=== PATIENT | female | born 1955 | race American Indian/Alaskan Native ===

== ENCOUNTER 2018-03-13 15:47 | Inpatient (IN) | payer MEDICARE, BC, OTHER ==
[2018-03-13 15:47] VITALS: BMI 36.9
--- NOTE | 2018-03-13 16:07 | ED PDOC ---
Arrival/HPI - General Chief Complaint: Psychiatric Evaluation Time Seen by Provider: 03/13/18 15:50 - History of Present Illness Narrative History of Present Illness (Text): 03/13/18 16:05 62 yo female, hx of depression, presents for evalof depression. pt jumped out of a vehicle on Wednesday, states vehicle slow moving. no injury or complaint after fall. no medical complaint. no loc. Past Medical History - Cardiac Hx Hypertension: Yes - Pulmonary Hx Respiratory Disorders: No Hx Tuberculosis: No - Neurological Hx Seizures: No - HEENT Hx HEENT Disorder: No - Renal Hx Renal Disorder: No - Hematological/Oncological Hx Blood Disorders: No - Integumentary Hx Dermatological Disorder: No - Musculoskeletal/Rheumatological Hx Musculoskeletal Disorders: Yes Hx Falls: No Hx Herniated Disk: Yes - Gastrointestinal Hx Gastrointestinal Disorders: No - Genitourinary/Gynecological Hx Sexually Transmitted Diseases: No - Psychiatric Hx Anxiety: Yes Hx Bipolar Disorder: Yes Hx Depression: Yes Hx Substance Use: No - Surgical History Other/Comment: Gastric lap band 2016. Cardiac Catherization 2016 [facility] - Anesthesia Hx Anesthesia: Yes Hx Anesthesia Reactions: No Hx Malignant Hyperthermia: No - Suicidal Assessment Feels Threatened In Home Enviroment: No Family/Social History Family/Social History: Unknown Family HX Smoking Status: Never Smoked Hx Alcohol Use: No Hx Substance Use: No Allergies/Home Meds Allergies/Adverse Reactions: Allergies adhesive tape Allergy (Verified 03/13/18 22:23) RASH Iodine and Iodide Containing Produc Allergy (Verified 03/13/18 22:23) ANAPHYLAXIS levothyroxine sodium [From Synthroid] Allergy (Verified 03/13/18 22:23) REDNESS povidone-iodine [From Betadine] Allergy (Verified 03/13/18 22:23) RASH soap [From Betadine] Allergy (Verified 03/13/18 22:23) RASH CRABS Allergy (Severe, Uncoded 03/13/18 22:23) ANAPHYLAXIS fresh fruit Allergy (Intermediate, Uncoded 03/13/18 22:23) ITCHING Home Medications: Home Meds Medication Instructions Recorded Confirmed RX: Alprazolam [Xanax] 1 mg PO TID PRN 11/09/15 03/13/18 RX: Conjugated Estrogens [Premarin] 0.625 mg PO DAILY 11/09/15 03/13/18 RX: Liothyronine [Cytomel] 25 mcg PO DAILY 11/09/15 03/13/18 RX: OXcarbazepine [Trileptal] 150 mg PO BID 11/09/15 03/13/18 RX: risperiDONE [RisperDAL Tab] 2 mg PO BID 11/09/15 03/13/18 RX: traZODone [Desyrel] 100 mg PO DAILY 11/09/15 03/13/18 Esomeprazole Magnesium [Nexium] 40 mg PO DAILY 03/13/18 03/13/18 Levothyroxine [Synthroid] 0.1 mg PO DAILY 03/13/18 03/13/18 Losartan/Hydrochlorothiazide 1 each PO DAILY 03/13/18 03/13/18 [Losartan-Hctz 50-12.5 mg Tab] Simvastatin [Zocor] 40 mg PO DAILY 03/13/18 03/13/18 oxyCODONE/Acetaminophen [Percocet 10 mg PO PRN PRN 03/13/18 03/13/18 5/325 mg Tab] Review of Systems - Review of Systems Constitutional: Normal Eyes: Normal ENT: Normal Respiratory: Normal Cardiovascular: Normal Gastrointestinal: Normal Genitourinary Female: Normal Musculoskeletal: Normal Skin: Normal Neurological: Normal Endocrine: Normal Hemo/Lymphatic: Normal Psychiatric: Normal Physical Exam Vital Signs Temp Pulse Resp BP Pulse Ox 03/13/18 15:55 97.7 F 104 H 18 116/74 96 Temperature: Afebrile Pulse: Tachycardic (mild) - Systems Exam Head: Present: Atraumatic, Normocephalic Pupils: Present: PERRL Extroacular Muscles: Present: EOMI Conjunctiva: Present: Normal Mouth: Present: Moist Mucous Membranes Neck: Present: Normal Range of Motion Respiratory/Chest: Present: Clear to Auscultation, Good Air Exchange. No: Respiratory Distress, Accessory Muscle Use Cardiovascular: Present: Regular Rate and Rhythm, Normal S1, S2. No: Murmurs Abdomen: No: Tenderness, Distention, Peritoneal Signs Back: Present: Normal Inspection Upper Extremity: Present: Normal Inspection. No: Cyanosis, Edema Lower Extremity: Present: Normal Inspection. No: Edema Neurological: Present: GCS=15, CN II-XII Intact, Speech Normal Skin: Present: Warm, Dry, Normal Color. No: Rashes Psychiatric: Present: Alert, Oriented x 3, Normal Insight, Normal Concentration, Depressed Mood, Other (mildly anxious appearing) Medical Decision Making ED Course and Treatment: 03/13/18 16:06 pending medical clearace. 03/13/18 16:40 ekg nsr [address] t wave changes 03/15/18 11:27 endorsed to nigh shift pending ua and admission - RAD Interpretation Radiology Orders: 03/13/18 16:03 CHEST PORTABLE [RAD] Stat Disposition/Present on Arrival - Present on Arrival Any Indicators Present on Arrival: No History of DVT/PE: No History of Uncontrolled Diabetes: No Urinary Catheter: No History of Decub. Ulcer: No History Surgical Site Infection Following: None - Disposition Have Diagnosis and Disposition been Completed?: Yes Diagnosis: Depression Disposition: HOSPITALIZED Disposition Time: 19:00 Patient Problems: Current Active Problems Problem Status Onset Bipolar disorder Acute Depression Acute History of OCD (obsessive compulsive disorder) Acute Condition: STABLE
[2018-03-13 17:05] LABS: BASO # 0.01 K/mm3 (0.0-2.0); BASO % 0.2 % (0.0-3.0); EOS # 0.1 (0.0-0.7); EOS % 1.5 % (1.5-5.0); GRAN # 2.35 (1.4-6.5); GRAN % 51.5 % (50.0-68.0); HEMOGLOBIN 13.2 g/dL (12.0-16.0); LYMPH # 1.9 (1.2-3.4); LYMPH % 42.2 % (22.0-35.0); MEAN CELL VOLUME 83.9 fl (80.0-105.0); MEAN CORPUSCULAR HGB CONC 33.3 g/dl (31.0-37.0); MEAN PLATELET VOLUME 9.3 fl (7.0-11.0); MONO # 0.2 (0.1-0.6); MONO % 4.6 % (1.0-6.0); RBC 4.72 10^6/uL (3.5-6.1); RED CELL DISTRIBUTION WIDTH 13.8 % (11.5-14.5); WHITE BLOOD COUNT 4.6 10^3/uL (4.5-11.0)
[2018-03-13 17:19] LABS: ACETAMINOPHEN < 10.0 ug/ml (10.0-20.0); ALB/GLOB RATIO 1.5 (1.1-1.8); ALBUMIN 4.3 g/dL (3.0-4.8); ALT/SGPT 45 U/L (7-56); AST/SGOT 58 U/L (14-36); BLOOD UREA NITROGEN 18 mg/dL (7-21); CALCIUM 9.4 mg/dL (8.4-10.5); GFR NON-AFRICAN AMERICAN 56; SALICYLATE < 1 mg/dL (2.0-20.0)
--- NOTE | 2018-03-13 17:30 | RAD ---
Date of service: 03/13/2018 HISTORY: debora COMPARISON: 11/09/2015 FINDINGS: LUNGS: The lungs are well inflated and clear. PLEURA: No pleural effusions or pneumothorax. CARDIOVASCULAR: The heart is normal in size. No aortic atherosclerotic calcification present. OSSEOUS STRUCTURES: Within normal limits for the patient's age. VISUALIZED UPPER ABDOMEN: Normal. OTHER FINDINGS: None. IMPRESSION: No active pulmonary disease.
--- NOTE | 2018-03-13 19:04 | ED PDOC ---
Physical Exam Vital Signs Reviewed: Yes Vital Signs Temp Pulse Resp BP Pulse Ox 03/13/18 17:30 90 18 120/80 99 03/13/18 15:55 97.7 F 104 H 18 116/74 96 Temperature: Afebrile Blood Pressure: Normal Pulse: Tachycardic Respiratory Rate: Normal Appearance: Positive for: Well-Appearing, Non-Toxic, Comfortable Pain Distress: None Mental Status: Positive for: Alert and Oriented X 3 - Systems Exam Head: Present: Atraumatic, Normocephalic Pupils: Present: PERRL Extroacular Muscles: Present: EOMI Conjunctiva: Present: Normal Mouth: Present: Moist Mucous Membranes Neck: Present: Normal Range of Motion Respiratory/Chest: Present: Clear to Auscultation, Good Air Exchange. No: Respiratory Distress, Accessory Muscle Use Cardiovascular: Present: Regular Rate and Rhythm, Normal S1, S2. No: Murmurs Abdomen: No: Tenderness, Distention, Peritoneal Signs Back: Present: Normal Inspection Upper Extremity: Present: Normal Inspection. No: Cyanosis, Edema Lower Extremity: Present: Normal Inspection. No: Edema Neurological: Present: GCS=15, CN II-XII Intact, Speech Normal Skin: Present: Warm, Dry, Normal Color. No: Rashes Psychiatric: Present: Alert, Oriented x 3, Normal Insight, Normal Concentration, Anxious (mildly anxious), Depressed Mood Medical Decision Making ED Course and Treatment: 03/13/18 19:02 Case endorsed to me by Dr. Pickard, pending urine and hospital admission. 03/13/18 19:13 Spoke to [facility] television rental clerk who states patient will be admitted under Dr. Mendoza and needs to confirm insurance. Urine pending. - Lab Interpretations Lab Results: 03/13/18 16:45 03/13/18 16:45 Lab Results 03/13/18 16:45: Alcohol, Quantitative < 10 03/13/18 16:45: Salicylates < 1 L, Acetaminophen < 10.0 L 03/13/18 16:45: Sodium 140, Potassium 3.7, Chloride 104, Carbon Dioxide 26, Anion Gap 14, BUN 18, Creatinine 1.0, Est GFR ( Amer) > 60, Est GFR (Non- Af Amer) 56, Random Glucose 107, Calcium 9.4, Magnesium 1.9, Total Bilirubin 0.4, AST 58 H, ALT 45, Alkaline Phosphatase 73, Total Protein 7.3, Albumin 4.3, Globulin 2.9, Albumin/Globulin Ratio 1.5 03/13/18 16:45: WBC 4.6 D, RBC 4.72, Hgb 13.2, Hct 39.6, MCV 83.9, MCH 28.0, MCHC 33.3, RDW 13.8, Plt Count 191, MPV 9.3, Gran % 51.5, Lymph % (Auto) 42.2 H, Sierra % (Auto) 4.6, Eos % (Auto) 1.5, Baso % (Auto) 0.2, Gran # 2.35, Lymph # (Auto) 1.9, Sierra # (Auto) 0.2, Eos # (Auto) 0.1, Baso # (Auto) 0.01 - RAD Interpretation Radiology Orders: 03/13/18 16:03 CHEST PORTABLE [RAD] Stat - Scribe Statement The provider has reviewed the documentation as recorded by the Scribe Madiha Abad All medical record entries made by the Scribe were at my direction and personally dictated by me. I have reviewed the chart and agree that the record accurately reflects my personal performance of the history, physical exam, medical decision making, and the department course for this patient. I have also personally directed, reviewed, and agree with the discharge instructions and disposition. Disposition/Present on Arrival - Present on Arrival Any Indicators Present on Arrival: No History of DVT/PE: No History of Uncontrolled Diabetes: No Urinary Catheter: No History of Decub. Ulcer: No History Surgical Site Infection Following: None - Disposition Have Diagnosis and Disposition been Completed?: Yes Diagnosis: Depression Disposition Time: 19:10 Patient Plan: Admission Condition: STABLE Referrals: José Miguel Dennis MD [Primary Care Provider] - Follow up with primary Forms: [employer] (Hungarian)
[2018-03-13 19:33] VITALS: O2SAT 100
[2018-03-13 19:37] LABS: URINE BILIRUBIN NEGATIVE (NEGATIVE); URINE BLOOD NEGATIVE (NEGATIVE); URINE GLUCOSE (UA) NEGATIVE (NEGATIVE); URINE LEUKOCYTE ESTERASE TRACE Leu/uL (NEGATIVE); URINE PROTEIN NEGATIVE mg/dL (<30 mg/dL); URINE UROBILINOGEN 0.2 E.U./dL (<1 E.U./dL)
[2018-03-13 19:44] LABS: URINE APPEARANCE CLEAR (CLEAR); URINE COLOR YELLOW (YELLOW)
[2018-03-13 20:06] LABS: BARBITURATES, UR NEGATIVE (NEGATIVE); BENZODIAZEPINES, UR POSITIVE (NEGATIVE); OPIATES, UR POSITIVE (NEGATIVE); PHENCYCLIDINE, UR NEGATIVE (NEGATIVE)
[2018-03-13 20:19] LABS: URINE RBC NEGATIVE /hpf (0-2)
[2018-03-13 20:20] LABS: URINE BACTERIA FEW (NEG)
[2018-03-13] MEDS ORDERED: Magnesium Hydroxide Susp 30 ml UD PO PRN (22:06)
[2018-03-13] MEDS ORDERED: Alum-Mag Hydrox-Simethicone Susp (30 mL) PO PRN (22:06)
[2018-03-13 22:54] LABS: HDL CHOLESTEROL 76 mg/dL (29-60)
[2018-03-13 23:04] LABS: LDL CHOLESTEROL 61 mg/dL (0-129)
--- NOTE | 2018-03-14 05:44 | PCM.BM ---
<James Husain O - Last Filed: 03/14/18 05:40> Treatment Plan Problems - Problems identified on initial assessmt Hopelessness Date Initiated: 03/13/18 Time Initiated: 22:45 Assessment reference: NA Status: Active Altered sleep pattern Date Initiated: 03/13/18 Time Initiated: 22:00 Assessment reference: NA Status: Active Feeling of worthlesness Date Initiated: 03/13/18 Time Initiated: 23:00 Assessment reference: NA Status: Active Treatment assets and liabiliti Patient Assests: ADL independent, good support system, good past tx response Patient Liabilities: poor support system - Milieu Protocol Maintain good personal hygiene: daily Encourage regular showers, daily Remind patient to perform daily oral care, daily Assist patient to perform ADL's Maintain personal safety: daily Educate patient to report safety concerns to staff, daily Monitor environment for contraband/sharps Medication safety: Monitor for expected outcome, potential side effects: daily, Assess barriers to learning: daily, Assess readiness for medication education: daily Family Contact Family contact: Patient declines to allow family contact at present Discharge/Continuing Care - Education Needs Education Needs: Patient Medication, Patient Coping Skills, Patient Aftercare Safety Plan - Discharge Discharge Criteria: Normal sleep pattern <Kelly Mcdonald - Last Filed: 03/14/18 15:00> - Diagnosis (1) Bipolar disorder Status: Acute Interventions: 03/14/18 15:01 Psychoeducation Psychopharmacology/adjustment of medications as needed/ monitoring possible side effects Monitor blood level of mood stabilizers Evaluate pt on daily basis Compliance with medications and follow up appointments Suicide and homicide risk assessment and prevention, coping strategies, safety plan Relapse prevention Reduction of symptoms Improve functional status Family involvement As outpatient: cognitive behavioral therapy (2) History of OCD (obsessive compulsive disorder) Status: Acute Interventions: 03/14/18 15:01 Psychoeducation Psychopharmacology/adjustment of medications as needed/ monitoring possible side effects Evaluate pt on daily basis Compliance with medications and follow up appointments Suicide and homicide risk assessment and prevention, coping strategies, safety plan Relapse prevention Reduction of symptoms Improve functional status Family involvement CBT, SSRI, exposure response prevention as outpatient Supportive therapy <Mayte Wellington Y - Last Filed: 03/16/18 15:16> Family Contact Family contact: Patient declines to allow family contact at present - Outside Agency Dr. Graves Care involvment: Information-sharing Agency contact name: psychiatrist, Dr. Graves
[2018-03-14 08:21] LABS: GLUCOSE,FASTING 93 mg/dL (65-110); HDL CHOLESTEROL 77 mg/dL (29-60)
[2018-03-14 08:32] LABS: LDL CHOLESTEROL 65 mg/dL (0-129)
--- NOTE | 2018-03-14 10:18 | CARD ---
APPROVED REPORT Date of service: 03/13/2018 EKG Measurement Heart [id number] <Conclusion> Sinus rhythm with 1st degree AV block Possible Inferior infarct, old NSSTW chnages Prolonged QT
--- NOTE | 2018-03-14 10:43 | CARD ---
APPROVED REPORT Date of service: 03/14/2018 EKG Measurement Heart [id number] <Conclusion> Normal sinus rhythm Low voltage QRS Possible Inferior infarct, age undetermined Abnormal ECG
[2018-03-14] MEDS: Mupirocin 2% Ointment 15 GM TUBE TOP SCH ×2 (11:11→15:33)
[2018-03-14] MEDS: Amoxicillin-Clav 500-125 mg Tab PO SCH ×2 (11:11→15:18)
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
[2018-03-14] MEDS: Oxycodone/Acetaminophen 2.5/325 mg Tab PO PRN (15:18)
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
--- NOTE | 2018-03-14 19:10 | CON ---
DATE OF CONSULTATION: 03/14/2018 REASON FOR CONSULTATION: Abnormal EKG. HISTORY OF PRESENT ILLNESS: The patient is a 62-year-old female who has a history of depression, was admitted because of symptoms of depression, not associated with suicidal ideation. The patient also did report chest discomfort to me today. Her EKG was abnormal with evidence of prolonged RI interval and prolonged QT interval. The patient denies any dizziness or syncope. The patient stated that she underwent recently, on 02/16/2018, an echocardiogram as well as a Lexiscan. The Lexiscan was reported to be negative as per my own review of the report and the echocardiograph study revealed normal ejection fraction and mild pulmonary hypertension. The patient also stated she underwent cardiac catheterization in 10/2015, which I did review the report, which revealed normal coronary circulation and normal left ventricular diastolic function. PAST MEDICAL HISTORY: Insignificant except for depression. SOCIAL HISTORY: Nonsmoker. CURRENT MEDICATIONS: Augmentin 1 tablet p.o. twice a day, Desyrel 100 mg at bedtime daily, Trileptal 450 mg once a day, Xanax 1 mg p.o. every 8 hours. REVIEW OF SYSTEMS: No nausea or vomiting. No fever or chills. PHYSICAL EXAMINATION: GENERAL: The patient is a middle-aged female who does not appear to be in any distress. VITAL SIGNS: Blood pressure 101/53, heart rate 66, temperature 97.7, respirations 19. HEENT: Normocephalic. NECK: No JVD. CHEST: Clear. HEART: S1 and S2 regular. ABDOMEN: Soft. EXTREMITIES: No edema. LABORATORY DATA: A urine drug screen is positive for methadone and benzodiazepines. SMA-7 is within normal limits. TSH level is below normal at 0.45. Hemoglobin and hematocrit 15.1 and 39.6, white count and platelet count are within normal limits. Second EKG done yesterday revealed sinus rhythm with first-degree AV block and nonspecific ST-T wave changes. Inferior Q-waves were noted. ASSESSMENT: 1. Atypical chest discomfort. The patient did have recently normal Lexiscan and normal echocardiograph study. Both were performed on 02/16/2018 as an outpatient. 2. Abnormal EKG with a slightly prolonged QT and RI interval. 3. Depression. RECOMMENDATIONS: Continue current antidepressants. I will obtain serum D-dimer, and if elevated, I will proceed with chest CT angio and venous Doppler of the lower extremities. Junaid Eugene MD
[2018-03-15] MEDS: Pantoprazole 40 mg EC Tab PO SCH ×2 (06:11→06:17)
[2018-03-15] MEDS: Levothyroxine 100 MCG TAB PO SCH (06:12)
[2018-03-15 07:25] VITALS: RESP 20
[2018-03-15 08:19] LABS: HEMOGLOBIN 12.4 g/dL (12.0-16.0); MEAN CELL VOLUME 83.5 fl (80.0-105.0); MEAN CORPUSCULAR HEMOGLOBIN 27.6 pg (25.0-35.0); MEAN CORPUSCULAR HGB CONC 33.1 g/dl (31.0-37.0); MEAN PLATELET VOLUME 9.5 fl (7.0-11.0); RBC 4.49 10^6/uL (3.5-6.1); RED CELL DISTRIBUTION WIDTH 13.9 % (11.5-14.5); WHITE BLOOD COUNT 3.2 10^3/uL (4.5-11.0)
[2018-03-15 08:40] LABS: ALB/GLOB RATIO 1.3 (1.1-1.8); ALBUMIN 4.1 g/dL (3.0-4.8); ALT/SGPT 50 U/L (7-56); AST/SGOT 42 U/L (14-36); BLOOD UREA NITROGEN 14 mg/dL (7-21); GFR NON-AFRICAN AMERICAN > 60
[2018-03-15] MEDS: Amoxicillin-Clav 500-125 mg Tab PO SCH ×2 (09:15→17:19)
[2018-03-15] MEDS: Oxycodone/Acetaminophen 2.5/325 mg Tab PO PRN ×2 (09:17→22:11)
[2018-03-15] MEDS: Mupirocin 2% Ointment 15 GM TUBE TOP SCH ×2 (09:20→17:20)
[2018-03-15] MEDS ORDERED: Iohexol 350 MG/100 ML VIAL ONE (10:20)
--- NOTE | 2018-03-15 13:30 | PN ---
DATE: SUBJECTIVE: I saw her in the psychiatric floor. She is eating her breakfast, does not like the food, but she is eating it. She is feeling a little bit better mentally. She is having this right should pain. She wants Physical Therapy to see her, I will order it and see what they can do for her. She is on Augmentin and Bactroban cream for a dog bite, which I think is going to get better. Cozaar, Desyrel, Geodon, hydrochlorothiazide, Protonix, Prozac, Risperdal, Synthroid, oxcarbazepine, Tylenol, Xanax and it looks like she is getting some oxycodone. PHYSICAL EXAMINATION: VITAL SIGNS: Temperature is 97.4 , 97 pulse, 120/86 blood pressure, and 20 respiratory rate. HEENT: Head is atraumatic and normocephalic. HEART: Regular rate. LUNGS: Clear to auscultation. ABDOMEN: Soft, obese and nontender. EXTREMITIES: No edema, but she is having a left calf dog bite, on Bactroban cream with some antibiotics. She tells me it is going to be a little bit better and I will get some physical therapy for her right shoulder. Continue with aggressive treatment and care as per Psychiatry. LABORATORY DATA: She had blood test, 3.2 white count, 12.4 hemoglobin, 37.5 hematocrit and platelets. She has 140 sodium, potassium 3.7, BUN 14, creatinine 0.8, GFR is greater than 60, sugar is 91, calcium is 9, and total bili is 0.3. AST is 42, ALT is 50 and alk phos 53. TSH is 0.28. She is not on any Synthroid. ASSESSMENT AND PLAN: She is breathing well. No chest pain or shortness of breath. I am going to continue with aggressive treatment and care on [place]. There was a consult for Cardiology on elevated QTC. Continue with current antidepressants. Will need a CT angio because the D-dimer is elevated. Venous Doppler of the lower extremities. Tylor Naylor DO [facility]
[2018-03-15] MEDS ORDERED: ALPRAZOLAM 1 MG PO PRN (14:00)
[2018-03-15] MEDS ORDERED: ALPRAZOLAM 1 MG PO SCH (14:00)
--- NOTE | 2018-03-15 15:43 | US ---
HISTORY: Leg pain and swelling. Evaluate for DVT PHYSICIAN(S): Hi Sawant MD. TECHNIQUE: Duplex sonography and color-flow Doppler with graded compression were used to evaluate the deep venous systems of both lower extremities. FINDINGS: The visualized deep venous systems of both lower extremities are sonographically normal and compressible. Normal wave forms and augmentation are seen. There is no sonographic evidence for deep venous thrombosis in the visualized segments of both lower extremities. IMPRESSION: No sonographic evidence for deep venous thrombosis in the visualized segments of both lower extremities.
--- NOTE | 2018-03-15 16:02 | PCM.PYCHPN ---
Psychiatric Progress Note - Psychiatric Progress Note Patient seen today, length of contact: 30 minutes Patient Chief Complaint: "I am very emotional, sentimental..., i was not able to fall asleep and stay asleep" Problems Identified/Issues Discussed: Suicide/ homicide prevention, past psychiatric h/o, current psychiatric symptoms, medical problems, risk/benefits and alternatives of medications, medications compliance, coping strategies, substance abuse h/o, relapse pre vention, importance of follow up with psychiatrist and therapist, discharge plan. Medical Problems: please see medical team note for more detailed information Diagnostic Results: 03/15/18 08:00 03/15/18 08:00 Lab Results 03/15/18 08:00: TSH 3rd Generation 0.28 L 03/15/18 08:00: Sodium 140, Potassium 3.7, Chloride 106, Carbon Dioxide 23, A nion Gap 14, BUN 14, Creatinine 0.8, Est GFR ( Amer) > 60, Est GFR (Non- Af Amer) > 60, Random Glucose 91, Calcium 9.0, Total Bilirubin 0.3, AST 42 H D, ALT 50, Alkaline Phosphatase 63, Total Protein 7.2, Albumin 4.1, Globulin 3.1, Albumin/Globulin Ratio 1.3 03/15/18 08:00: WBC 3.2 L D, RBC 4.49, Hgb 12.4, Hct 37.5, MCV 83.5, MCH 27.6, MCHC 33.1, RDW 13.9, Plt Count 187, MPV 9.5 03/14/18 14:00: D-Dimer, Quantitative 285 H 03/14/18 07:00: RPR Nonreactive 03/14/18 07:00: Fasting Glucose 93, Triglycerides 121, Cholesterol 157, LDL Cholesterol Direct 65, HDL Cholesterol 77 H 03/14/18 07:00: TSH 3rd Generation 0.45 L 03/13/18 22:15: Hemoglobin A1c 5.6 03/13/18 22:15: Triglycerides 157, Cholesterol 162, LDL Cholesterol Direct 61, HDL Cholesterol 76 H 03/13/18 19:25: Urine Opiates Screen Positive H, Urine Methadone Screen Negative, Ur Barbiturates Screen Negative, Ur Phencyclidine Scrn Negative, Ur Amphetamines Screen Negative, U Benzodiazepines Scrn Positive H, U Oth Cocaine Metabols Negative, U Cannabinoids Screen Negative 03/13/18 19:25: Urine Color Yellow, Urine Appearance Clear, Urine pH 6.0, Ur Specific [place] 1.020, Urine Protein Negative, Urine Glucose (UA) Negative, Urine Ketones Negative, Urine Blood Negative, Urine Nitrate Negative, Urine Bilirubin Negative, Urine Urobilinogen 0.2, Ur Leukocyte Esterase Trace H, Urine RBC Negative, Urine WBC 1 - 3, Ur Epithelial Cells 1 - 3, Urine Bacteria Few 03/13/18 16:45: Alcohol, Quantitative < 10 03/13/18 16:45: Salicylates < 1 L, Acetaminophen < 10.0 L 03/13/18 16:45: Sodium 140, Potassium 3.7, Chloride 104, Carbon Dioxide 26, Anion Gap 14, BUN 18, Creatinine 1.0, Est GFR ( Amer) > 60, Est GFR (Non- Af Amer) 56, Random Glucose 107, Calcium 9.4, Magnesium 1.9, Total Bilirubin 0.4, AST 58 H, ALT 45, Alkaline Phosphatase 73, Total Protein 7.3, Albumin 4.3, Globulin 2.9, Albumin/Globulin Ratio 1.5 03/13/18 16:45: WBC 4.6 D, RBC 4.72, Hgb 13.2, Hct 39.6, MCV 83.9, MCH 28.0, MCHC 33.3, RDW 13.8, Plt Count 191, MPV 9.3, Gran % 51.5, Lymph % (Auto) 42.2 H, [place] % (Auto) 4.6, Eos % (Auto) 1.5, Baso % (Auto) 0.2, Gran # 2.35, Lymph # (Auto) 1.9, [place] # (Auto) 0.2, Eos # (Auto) 0.1, Baso # (Auto) 0.01 Vital Signs Temp Pulse Resp BP Pulse Ox 03/15/18 09:16 97 H 120/86 03/15/18 07:24 97.4 F L 97 H 20 120/86 03/14/18 15:18 101 H 153/93 H 03/14/18 14:52 66 101/53 L 03/14/18 07:00 97.7 F 66 19 101/53 L 03/14/18 04:40 19 03/13/18 19:31 98.2 F 88 16 128/72 100 03/13/18 17:30 90 18 120/80 99 03/13/18 15:55 97.7 F 104 H 18 116/74 96 DSM 5 Symptoms Update: shortly pt is 62yo female with h/o bipolar disorder, at least one previous psych admission to this facility in 2014, pt is following up in the community by , pt reported being compliant with meds and f/u appt, multiple medical issues, was sent to the psych unit by outpatient psychiatrist for evaluation of worsening of depression/ocd/ pt tried to jump off the moving vehicle over the weekend. pt requires further evaluation and stabilization, meds adjustment. pt was seen today next to the nursing station, patient observed to be emotional labile crying, patient said that she feels sentimental, patient reported that she was not able to sleep asked to increase trazodone at the nighttime. presented to have acceptable personal hygiene, was calm/cooperative/ tearful when was asked about her depressive symptoms. pt has good ADLs. So far patient tolerates adjustment of the medications well, patient asked xanax XL to be given as a home med aims 0, no EPS. impression: As per history bipolar disorder Medication Change: Yes (xanax XL) Medical Record Reviewed: Yes Consults ordered or reviewed: medical consult appreciated please see notes for more detailed information Mental Status Examination - Cognitive Function Orientation: Person, Place, Situation, Time Memory: Intact Attention: Poor Concentration: Poor Association: Loose Fund of Knowledge: WNL - Mood Mood: Depressed, Anxious - Affect Affect: Flat (and tearful) - Formal Thought Process Formal Thought Process: No Impairment, Other (mildy disorganized) - Suicidal Ideation Suicidal Ideation: No - Homicidal Ideation Homicidal Ideation: No Goal/Treatment Plan - Goal/Treatment Plan Need for Continued Stay: Remain at risks for inpatient hospitalization, Severe depression anxiety, Discharge may exacerbated symptoms, Severe functional impairment Progress Toward Problem(s) and Goals/Treatment Plan: Milieu/structure/supportive therapy Medical consult was called cardiology consult initiated meds resumed, med list filed into the chart celexa d/c prozac 10 mg started for depression and anxiety risperdal 1mg po bid formal stabilization Trileptal 153 times a day for mood stabilization SW consultation for discharge plan and social issues discussed with Family involvement Follow up on labs Will monitor closely Pt was educated about risk/benefits and alternatives of medications, coping strategies (safety plan, suicide prevention), relapse prevention, importance of follow up with psychiatrist and therapist, stay away from drugs/alcohol/smoking Estimated Date of D/C: 03/22/18
--- NOTE | 2018-03-15 19:53 | PN ---
DATE: 03/15/2018 SUBJECTIVE: The patient denies any chest pain or shortness of breath. PHYSICAL EXAMINATION VITAL SIGNS: Blood pressure 120/86, heart rate 97, temperature 97.4, respirations 20. HEENT: Normocephalic. CHEST: Clear. HEART: S1 and S2 regular. ABDOMEN: Soft. EXTREMITIES: No edema. LABORATORY DATA: The SMA-7 is within normal limits. Today's white count 8.2, and the rest of CBC is within normal limits. Venous Doppler of lower extremities, no sonographic evidence of DVT. ASSESSMENT: 1. Atypical chest pain, myocardial infarction ruled out. 2. Rule out pulmonary infarction. 3. Depression. RECOMMENDATIONS: Continue current Synthroid, Prozac, oral Protonix, hydrochlorothiazide, and Trileptal. The patient is scheduled for ventilation/perfusion scan as she is ALLERGIC TO DYE CONTRAST. Junaid Eugene MD
[2018-03-16] MEDS: Pantoprazole 40 mg EC Tab PO SCH (06:32)
[2018-03-16] MEDS: Levothyroxine 100 MCG TAB PO SCH (06:32)
[2018-03-16] MEDS: Mupirocin 2% Ointment 15 GM TUBE TOP SCH ×2 (08:02→15:03)
[2018-03-16] MEDS: Amoxicillin-Clav 500-125 mg Tab PO SCH ×2 (08:03→15:03)
--- NOTE | 2018-03-16 10:59 | PN ---
DATE: 03/16/2018 SUBJECTIVE: She was very upset this morning about the dog bite on her right calf and she is on antibiotics, Augmentin and Bactroban cream, also Cozaar, Desyrel, Geodon, hydrochlorothiazide, oxycodone, Protonix, Prozac, Risperdal, levothyroxine which I will decrease, oxcarbazepine and she was very concerned about the right calf. I looked that with her, I thought it may be a little bit better, but I will leave it to Dr. Smith, Infectious Disease to take a look at it too. She is eating okay, trying to get better mentally. PHYSICAL EXAMINATION: VITAL SIGNS: She has 98.5 temp, 102 pulse, 135/85 blood pressure, 20 respiratory rate. HEENT: Head is atraumatic, normocephalic. HEART: Regular rate. LUNGS: Decreased breath sounds, but clear. ABDOMEN: Soft, obese, nontender. EXTREMITIES: No edema. ASSESSMENT AND PLAN: The right calf has skin issues from the dog bite and we will see what Dr. Smith thinks. We will check her labs. We will get in consult. Tylor Naylor DO
--- NOTE | 2018-03-16 11:05 | NM ---
Date of service: 03/15/2018 COMPARISON: 03/13/2018. Single-view chest TECHNIQUE: 30.0 mCi technetium 99-m Xe-133 Gas. 2.75 mCI technetium 99-m MAA administered intravenously. FINDINGS: VENTILATION COMPONENT: Heterogeneous ventilation. Retention of radionuclide in the tracheobronchial tree and ingestion of radionuclide in the stomach, incidental findings PERFUSION COMPONENT: Heterogeneous distribution of radionuclide. No geographic, segmental, lobar abnormalities apparent on the present examination. IMPRESSION: Low probability ventilation perfusion scan for pulmonary embolism.
--- NOTE | 2018-03-16 13:15 | PCM.PYCHPN ---
Psychiatric Progress Note - Psychiatric Progress Note Patient seen today, length of contact: 30 minutes Patient Chief Complaint: "I feel little better" Problems Identified/Issues Discussed: Suicide/ homicide prevention, past psychiatric h/o, current psychiatric symptoms, medical problems, risk/benefits and alternatives of medications, medications compliance, coping strategies, substance abuse h/o, relapse prevention, importance of follow up with psychiatrist and therapist, discharge plan. Medical Problems: please see medical team note for more detailed information Diagnostic Results: 03/15/18 08:00 03/15/18 08:00 Lab Results 03/15/18 08:00: TSH 3rd Generation 0.28 L 03/15/18 08:00: Sodium 140, Potassium 3.7, Chloride 106, Carbon Dioxide 23, Anion Gap 14, BUN 14, Creatinine 0.8, Est GFR ( Amer) > 60, Est GFR (Non- Af Amer) > 60, Random Glucose 91, Calcium 9.0, Total Bilirubin 0.3, AST 42 H D, ALT 50, Alkaline Phosphatase 63, Total Protein 7.2, Albumin 4.1, Globulin 3.1, Albumin/Globulin Ratio 1.3 03/15/18 08:00: WBC 3.2 L D, RBC 4.49, Hgb 12.4, Hct 37.5, MCV 83.5, MCH 27.6, MCHC 33.1, RDW 13.9, Plt Count 187, MPV 9.5 03/14/18 14:00: D-Dimer, Quantitative 285 H 03/14/18 07:00: RPR Nonreactive 03/14/18 07:00: Fasting Glucose 93, Triglycerides 121, Cholesterol 157, LDL Cholesterol Direct 65, HDL Cholesterol 77 H 03/14/18 07:00: TSH 3rd Generation 0.45 L 03/13/18 22:15: Hemoglobin A1c 5.6 03/13/18 22:15: Triglycerides 157, Cholesterol 162, LDL Cholesterol Direct 61, HDL Cholesterol 76 H 03/13/18 19:25: Urine Opiates Screen Positive H, Urine Methadone Screen Negative, Ur Barbiturates Screen Negative, Ur Phencyclidine Scrn Negative, Ur Amphetamines Screen Negative, U Benzodiazepines Scrn Positive H, U Oth Cocaine Metabols Negative, U Cannabinoids Screen Negative 03/13/18 19:25: Urine Color Yellow, Urine Appearance Clear, Urine pH 6.0, Ur Specific [place] 1.020, Urine Protein Negative, Urine Glucose (UA) Negative, Urine Ketones Negative, Urine Blood Negative, Urine Nitrate Negative, Urine Bilirubin Negative, Urine Urobilinogen 0.2, Ur Leukocyte Esterase Trace H, Urine RBC Negative, Urine WBC 1 - 3, Ur Epithelial Cells 1 - 3, Urine Bacteria Few 03/13/18 16:45: Alcohol, Quantitative < 10 03/13/18 16:45: Salicylates < 1 L, Acetaminophen < 10.0 L 03/13/18 16:45: Sodium 140, Potassium 3.7, Chloride 104, Carbon Dioxide 26, Anion Gap 14, BUN 18, Creatinine 1.0, Est GFR ( Amer) > 60, Est GFR (Non- Af Amer) 56, Random Glucose 107, Calcium 9.4, Magnesium 1.9, Total Bilirubin 0.4, AST 58 H, ALT 45, Alkaline Phosphatase 73, Total Protein 7.3, Albumin 4.3, Globulin 2.9, Albumin/Globulin Ratio 1.5 03/13/18 16:45: WBC 4.6 D, RBC 4.72, Hgb 13.2, Hct 39.6, MCV 83.9, MCH 28.0, MCHC 33.3, RDW 13.8, Plt Count 191, MPV 9.3, Gran % 51.5, Lymph % (Auto) 42.2 H, [place] % (Auto) 4.6, Eos % (Auto) 1.5, Baso % (Auto) 0.2, Gran # 2.35, Lymph # (Auto) 1.9, [place] # (Auto) 0.2, Eos # (Auto) 0.1, Baso # (Auto) 0.01 Vital Signs Temp Pulse Resp BP Pulse Ox 03/15/18 09:16 97 H 120/86 03/15/18 07:24 97.4 F L 97 H 20 120/86 03/14/18 15:18 101 H 153/93 H 03/14/18 14:52 66 101/53 L 03/14/18 07:00 97.7 F 66 19 101/53 L 03/14/18 04:40 19 03/13/18 19:31 98.2 F 88 16 128/72 100 03/13/18 17:30 90 18 120/80 99 03/13/18 15:55 97.7 F 104 H 18 116/74 96 DSM 5 Symptoms Update: shortly pt is 62yo female with h/o bipolar disorder, at least one previous psych admission to this facility in 2014, pt is following up in the community by , pt reported being compliant with meds and f/u appt, multiple medical issues, was sent to the psych unit by outpatient psychiatrist for evaluation of worsening of depression/ocd/ pt tried to jump off the moving vehicle over the weekend. pt requires further evaluation and stabilization, meds adjustment. pt was seen today at the treatment team meeting, patient presented to be emotional, overall reported that she feels better, patient reported that she is anxious about her medical issues and possibility to be admitted to the medical floor for her leg infection. presented to have acceptable personal hygiene, was calm/cooperative/ tearful when was asked about her depressive symptoms. pt has good ADLs. So far patient tolerates adjustment of the medications well, prozac increased. aims 0, no EPS. impression: As per history bipolar disorder Medication Change: Yes (prozac) Medical Record Reviewed: Yes Mental Status Examination - Cognitive Function Orientation: Person, Place, Situation, Time Memory: Intact Attention: Poor (some improvement) Concentration: Poor (some improvement) Association: Loose (some improvement) Fund of Knowledge: WNL - Mood Mood: Depressed, Anxious - Affect Affect: Flat (and tearful) - Formal Thought Process Formal Thought Process: No Impairment, Other (mildy disorganized) - Suicidal Ideation Suicidal Ideation: No - Homicidal Ideation Homicidal Ideation: No Goal/Treatment Plan - Goal/Treatment Plan Need for Continued Stay: Remain at risks for inpatient hospitalization, Severe depression anxiety, Discharge may exacerbated symptoms, Severe functional impairment Progress Toward Problem(s) and Goals/Treatment Plan: Milieu/structure/supportive therapy Medical consult was called cardiology consult initiated meds resumed, med list filed into the chart celexa d/c prozac 20 mg started for depression and anxiety risperdal 1mg po bid formal stabilization Trileptal 153 times a day for mood stabilization SW consultation for discharge plan and social issues discussed with Family involvement Follow up on labs Will monitor closely Pt was educated about risk/benefits and alternatives of medications, coping strategies (safety plan, suicide prevention), relapse prevention, importance of follow up with psychiatrist and therapist, stay away from drugs/alcohol/smoking Estimated Date of D/C: 03/22/18
--- NOTE | 2018-03-16 15:34 | CP.PCM.CON ---
History of Present Illness - History of Present Illness History of Present Illness: Nathaly Gonzáles 62 year old male with past medical history of hypertension, CAD, hypothyroidism, depression, suicidal ideation, and history of dog bite 3 weeks and 2 months ago presents at bedside status post dog bite 3 weeks after her last dog bit by her dog. She reports that the bite is on right calf which first felt like an aching pain and has gotten worse since that time. Now, the pain feel like "someone punching her calf". She has been on augmentin for 2 weeks for the dog bite. Yesterday, the erythema has worsened and some yellow discharge was noted by patient. She denies any radiation of the pain. She denies any chills, fever, fatigue, shortness of breath, chest pain, abdominal pain, nausea, vomiting, constipation, diarrhea, dysuria, hematuria. PMH: hypertension, CAD, hypothyroidism, depression, suicidal ideation PSH: gastric lap band in 2016, cardiac catherization 2015 FMHx: noncontributary Allergies: adhesive tape, iodine, levothyroxine, soap, crabs, frush fruit Social history: denies alcohol, illicit drug use, and smoking history PMD: Dr. Jeannie Valdez Review of Systems - Constitutional Constitutional: absent: Chills, Fever - EENT Eyes: absent: Blurred Vision Ears: absent: Decreased Hearing - Cardiovascular Cardiovascular: absent: Chest Pain, Edema - Respiratory Respiratory: absent: Cough - Gastrointestinal Gastrointestinal: absent: Abdominal Pain, Constipation, Diarrhea, Nausea, Vomiting - Genitourinary Genitourinary: absent: Dysuria, Hematuria - Musculoskeletal Musculoskeletal: absent: Arthralgias - Integumentary Additional comments: induration of right calf mass. Blue, purple discoloration around the mass. Nonerythematous, not warm around the area. - Neurological Neurological: absent: Numbness, Tingling, Tremor, Weakness Past Patient History - Past Medical History & Family History Past Medical History?: Yes - Past Social History Smoking Status: Never Smoked - CARDIAC Hx Hypertension: Yes - PULMONARY Hx Respiratory Disorders: No Hx Tuberculosis: No - NEUROLOGICAL Hx Seizures: No - HEENT Hx HEENT Problems: No - RENAL Hx Chronic Kidney Disease: No - HEMATOLOGICAL/ONCOLOGICAL Hx Blood Disorders: No - INTEGUMENTARY Hx Dermatological Problems: No - MUSCULOSKELETAL/RHEUMATOLOGICAL Hx Musculoskeletal Disorders: Yes Hx Falls: No Hx Herniated Disk: Yes - GASTROINTESTINAL Hx Gastrointestinal Disorders: No - GENITOURINARY/GYNECOLOGICAL Hx Sexually Transmitted Disorders: No - PSYCHIATRIC Hx Anxiety: Yes Hx Bipolar Disorder: Yes Hx Depression: Yes Hx Substance Use: No - SURGICAL HISTORY Other/Comment: Gastric lap band 2016. Cardiac Catherization 2016 [facility] - ANESTHESIA Hx Anesthesia: Yes Hx Anesthesia Reactions: No Hx Malignant Hyperthermia: No Meds Allergies/Adverse Reactions: Allergies Allergy/AdvReac Type Severity Reaction Status Date / Time adhesive tape Allergy RASH Verified 03/13/18 22:23 Iodine and Iodide Containing Allergy ANAPHYLAXIS Verified 03/13/18 22:23 Produc levothyroxine sodium Allergy REDNESS Verified 03/13/18 22:23 [From Synthroid] povidone-iodine Allergy RASH Verified 03/13/18 22:23 [From Betadine] soap [From Betadine] Allergy RASH Verified 03/13/18 22:23 CRABS Allergy Severe ANAPHYLAXIS Uncoded 03/13/18 22:23 fresh fruit Allergy Intermediate ITCHING Uncoded 03/13/18 22:23 - Medications Medications: Current Medications Acetaminophen (Tylenol 325mg Tab) 325 mg PO Q6H PRN PRN Reason: Pain, Mild (1-3) Last Admin: 03/16/18 15:02 Dose: 325 mg Al Hydrox/Mg Hydrox/Simethicone (Maalox Plus 30 Ml) 30 ml PO DAILY PRN PRN Reason: Dyspepsia Last Admin: 03/14/18 23:49 Dose: 30 ml Amoxicillin/Clavulanate Potassium (Augmentin 500 Mg-125 Mg Tab) 1 tab PO BID [facility]; Protocol Last Admin: 03/16/18 15:03 Dose: 1 tab Fluoxetine HCl (Prozac) 20 mg PO DAILY [facility] Home Med (Home Med) 0 unit PO Q8 PRN PRN Reason: Anxiety Last Admin: 03/15/18 22:10 Dose: 1 unit Hydrochlorothiazide (Microzide) 12.5 mg PO DAILY [facility] Last Admin: 03/16/18 08:05 Dose: 12.5 mg Levothyroxine Sodium (Synthroid) 88 mcg PO 0600 [facility] Losartan Potassium (Cozaar) 50 mg PO DAILY [facility] Last Admin: 03/16/18 08:04 Dose: 50 mg Magnesium Hydroxide (Milk Of Magnesia) 30 ml PO DAILY PRN PRN Reason: Constipation Mupirocin (Bactroban Ointment) 0 gm TOP BID [facility] Last Admin: 03/16/18 15:03 Dose: 1 applic Oxcarbazepine (Trileptal) 150 mg PO HS [facility]; Protocol Last Admin: 03/15/18 22:03 Dose: 150 mg Oxcarbazepine (Trileptal) 150 mg PO BID [facility]; Protocol Last Admin: 03/16/18 15:03 Dose: 150 mg Oxycodone/Acetaminophen (Percocet 2.5/325 Mg Tab) 1 tab PO TID PRN PRN Reason: severe pain >8/10 Last Admin: 03/15/18 22:11 Dose: 1 tab Pantoprazole Sodium (Protonix Ec Tab) 40 mg PO 0600 [facility] Last Admin: 03/16/18 06:32 Dose: 40 mg Risperidone (Risperdal Tab) 1 mg PO AMHS [facility]; Protocol Last Admin: 03/16/18 09:29 Dose: 1 mg Trazodone HCl (Desyrel) 100 mg PO HS [facility] Last Admin: 03/15/18 22:03 Dose: 100 mg Trazodone HCl (Desyrel) 100 mg PO HS PRN PRN Reason: as neeeded for insomnia Ziprasidone (Geodon Inj) 20 mg IM Q6H PRN; Protocol PRN Reason: Agitation Ziprasidone (Geodon Cap) 20 mg PO QID PRN; Protocol PRN Reason: agitation/psychosis Physical Exam - Constitutional Appears: Well, Non-toxic, No Acute Distress - Head Exam Head Exam: ATRAUMATIC, NORMAL INSPECTION, NORMOCEPHALIC - Eye Exam Eye Exam: EOMI Pupil Exam: PERRL - Respiratory Exam Respiratory Exam: Clear to Auscultation Bilateral, NORMAL BREATHING PATTERN - Cardiovascular Exam Cardiovascular Exam: REGULAR RHYTHM - GI/Abdominal Exam GI & Abdominal Exam: Normal Bowel Sounds, Soft - Extremities Exam Additional comments: right calf induration, nonerythematous, not warm, tender. Blue, purple discoloration present - Neurological Exam Neurological exam: Alert, CN II-XII Intact, Oriented x3 - Skin Skin Exam: Dry, Intact, Normal Color Results - Vital Signs Recent Vital Signs: Last Vital Signs Temp 98.5 F 03/16/18 07:26 Pulse 102 H 10/31/18 08:04 Resp 20 03/16/18 07:26 BP 135/85 03/16/18 08:04 Pulse Ox 100 03/13/18 19:31 - Labs Result Diagrams: 03/15/18 08:00 03/15/18 08:00 Assessment & Plan - Assessment and Plan (Free Text) Assessment: 62 year old male with past medical history of hypertension, CAD, hypothyroidism, depression, suicidal ideation, and history of dog bite 3 weeks and 2 months ago presents at bedside status post dog bite 3 weeks after her last dog bit by her dog. Doppler U/S was negative for DVT and V/Q scan was negative for PE. Plan: Low suspicion of abscess at this time. Continue antibiotics as per ID. Ultrasound of the right calf to evaluate for pathology of induration. Please contact surgery if patient's condition worsens. GI prophylaxis with protonix. Will discuss case with Dr. Mccall - Date & Time Date: 03/16/18 Time: 15:43
--- NOTE | 2018-03-16 22:16 | CON ---
DATE: 03/16/2018 The patient is in bed. I seen her in psychiatric floor. CHIEF COMPLAINT: Dog bite x3 weeks ago. HISTORY OF PRESENT ILLNESS: This is a 62-year-old female with history of obesity, hypertension, high cholesterol, depression, and anxiety. She states she does not have diabetes. Nursing assessment writes that the patient is diabetic. She is not on any diabetic medications. She is admitted to the psychiatric floor with diagnosis of depression and on the right leg she had dog bite, she still has tenderness there. Infectious Disease consultation is requested. REVIEW OF SYSTEMS: A 14-point review of system is performed. No fevers. No chills. No nausea. No vomiting. She is having pain at the right leg. No chest pain, shortness of breath. No headaches or blurred vision. No neurological symptoms. PAST MEDICAL HISTORY: Significant for anxiety, depression, high cholesterol, hypertension, and obesity with a BMI of 39. PAST SURGICAL HISTORY: Significant for lap banding four years ago. ALLERGIES: PATIENT IS ALLERGIC TO ADHESIVE TAPE, IODINE, IODINE CONTAINING PRODUCTS, LEVOTHYROXINE, POVIDONE IODINE AND SOAPS. SHE DENIES ANY ALLERGIES, ALTHOUGH THIS IS LISTED ON THE CHART. MEDICATIONS AT HOME: Include levothyroxine. PHYSICAL EXAMINATION VITAL SIGNS: On exam, she is in bed with a temperature of 98, heart rate of 101, respiratory rate 20, blood pressure 120/80. HEENT: Examination of HEENT is unremarkable. NECK: Supple. LUNGS: Decreased breath sounds. HEART: Normal S1 and S2. ABDOMEN: Soft and nontender. No rebound or guarding. EXTREMITIES: Examination of right leg, there is tenderness in fluctuant area and there is no discharge. It is indurated. LABORATORY EXAMINATION: Reveals a white count of 4.6. hemoglobin 13, and platelets of 197. Chemistries are noted to be normal. Urinalysis is reviewed. Toxicology is reviewed. Serology, RPR is negative. Microbiology is reviewed. Urine cultures, no growth. ASSESSMENT: This is a 62-year-old female with obesity with body mass index of 39, hypertension, high cholesterol, depression and anxiety with right leg dog bite, she is not sure whose dog it was and she was treated in the emergency room appropriately at that time, must rule out underlying abscess. We recommended a surgical consultation. Currently, on p.o. Augmentin, will complete the p.o. Augmentin and consider imaging to rule out an abscess at the site and the fluctuant, may need incision and drainage by Surgery. Case discussed with Dr. Tylor Naylor. Leonid Smith MD
[2018-03-16] MEDS: Oxycodone/Acetaminophen 2.5/325 mg Tab PO PRN (22:19)
--- NOTE | 2018-03-16 22:26 | PN ---
DATE: 03/16/2018 FOLLOWUP SUBJECTIVE: The patient denies any chest pain or shortness of breath. PHYSICAL EXAMINATION: VITAL SIGNS: Blood pressure 135/85, heart rate 102, temperature 98.5, and respirations 20. HEENT: Normocephalic. CHEST: Clear. HEART: S1 and S2 are regular. EXTREMITIES: Cellulitis involving the posterior aspect of the right lower leg. The patient attributed that to recent dog bite. ASSESSMENT: 1. Chest pain, myocardial infraction is ruled out. 2. Right calf cellulitis. 3. Depression. RECOMMENDATIONS: Continue current oral amoxycillin, which was ordered today. I will follow ventilation/perfusion scan results. Junaid Eugene MD
[2018-03-17] MEDS: Levothyroxine 88 MCG TAB PO SCH (05:16)
[2018-03-17] MEDS: Oxycodone/Acetaminophen 2.5/325 mg Tab PO PRN ×4 (06:50→23:00)
[2018-03-17] MEDS: Pantoprazole 40 mg EC Tab PO SCH (06:50)
[2018-03-17 07:56] LABS: HEMOGLOBIN 12.7 g/dL (12.0-16.0); MEAN CELL VOLUME 83.6 fl (80.0-105.0); MEAN CORPUSCULAR HEMOGLOBIN 27.4 pg (25.0-35.0); MEAN CORPUSCULAR HGB CONC 32.8 g/dl (31.0-37.0); MEAN PLATELET VOLUME 9.5 fl (7.0-11.0); RBC 4.63 10^6/uL (3.5-6.1); WHITE BLOOD COUNT 4.2 10^3/uL (4.5-11.0)
[2018-03-17 08:08] LABS: ALB/GLOB RATIO 1.4 (1.1-1.8); ALBUMIN 4.5 g/dL (3.0-4.8); ALT/SGPT 47 U/L (7-56); AST/SGOT 35 U/L (14-36); BLOOD UREA NITROGEN 15 mg/dL (7-21); CALCIUM 9.4 mg/dL (8.4-10.5); GFR NON-AFRICAN AMERICAN > 60
[2018-03-17] MEDS: Amoxicillin-Clav 500-125 mg Tab PO SCH ×2 (09:42→16:27)
[2018-03-17] MEDS: Mupirocin 2% Ointment 15 GM TUBE TOP SCH ×2 (09:49→16:27)
--- NOTE | 2018-03-17 13:59 | PCM.PYCHPN ---
Psychiatric Progress Note - Psychiatric Progress Note Patient seen today, length of contact: 30 minutes Patient Chief Complaint: "I feel better" Problems Identified/Issues Discussed: Suicide/ homicide prevention, past psychiatric h/o, current psychiatric symptoms, medical problems, risk/benefits and alternatives of medications, medications compliance, coping strategies, substance abuse h/o, relapse prevention, importance of follow up with psychiatrist and therapist, discharge plan. Medical Problems: please see medical team note for more detailed information Diagnostic Results: 03/15/18 08:00 03/15/18 08:00 Lab Results 03/15/18 08:00: TSH 3rd Generation 0.28 L 03/15/18 08:00: Sodium 140, Potassium 3.7, Chloride 106, Carbon Dioxide 23, Anion Gap 14, BUN 14, Creatinine 0.8, Est GFR ( Amer) > 60, Est GFR (Non- Af Amer) > 60, Random Glucose 91, Calcium 9.0, Total Bilirubin 0.3, AST 42 H D, ALT 50, Alkaline Phosphatase 63, Total Protein 7.2, Albumin 4.1, Globulin 3.1, Albumin/Globulin Ratio 1.3 03/15/18 08:00: WBC 3.2 L D, RBC 4.49, Hgb 12.4, Hct 37.5, MCV 83.5, MCH 27.6, MCHC 33.1, RDW 13.9, Plt Count 187, MPV 9.5 03/14/18 14:00: D-Dimer, Quantitative 285 H 03/14/18 07:00: RPR Nonreactive 03/14/18 07:00: Fasting Glucose 93, Triglycerides 121, Cholesterol 157, LDL Cholesterol Direct 65, HDL Cholesterol 77 H 03/14/18 07:00: TSH 3rd Generation 0.45 L 03/13/18 22:15: Hemoglobin A1c 5.6 03/13/18 22:15: Triglycerides 157, Cholesterol 162, LDL Cholesterol Direct 61, HDL Cholesterol 76 H 03/13/18 19:25: Urine Opiates Screen Positive H, Urine Methadone Screen Negative, Ur Barbiturates Screen Negative, Ur Phencyclidine Scrn Negative, Ur Amphetamines Screen Negative, U Benzodiazepines Scrn Positive H, U Oth Cocaine Metabols Negative, U Cannabinoids Screen Negative 03/13/18 19:25: Urine Color Yellow, Urine Appearance Clear, Urine pH 6.0, Ur Specific [place] 1.020, Urine Protein Negative, Urine Glucose (UA) Negative, Urine Ketones Negative, Urine Blood Negative, Urine Nitrate Negative, Urine Bilirubin Negative, Urine Urobilinogen 0.2, Ur Leukocyte Esterase Trace H, Urine RBC Negative, Urine WBC 1 - 3, Ur Epithelial Cells 1 - 3, Urine Bacteria Few 03/13/18 16:45: Alcohol, Quantitative < 10 03/13/18 16:45: Salicylates < 1 L, Acetaminophen < 10.0 L 03/13/18 16:45: Sodium 140, Potassium 3.7, Chloride 104, Carbon Dioxide 26, Anion Gap 14, BUN 18, Creatinine 1.0, Est GFR ( Amer) > 60, Est GFR (Non- Af Amer) 56, Random Glucose 107, Calcium 9.4, Magnesium 1.9, Total Bilirubin 0.4, AST 58 H, ALT 45, Alkaline Phosphatase 73, Total Protein 7.3, Albumin 4.3, Globulin 2.9, Albumin/Globulin Ratio 1.5 03/13/18 16:45: WBC 4.6 D, RBC 4.72, Hgb 13.2, Hct 39.6, MCV 83.9, MCH 28.0, MCHC 33.3, RDW 13.8, Plt Count 191, MPV 9.3, Gran % 51.5, Lymph % (Auto) 42.2 H, [place] % (Auto) 4.6, Eos % (Auto) 1.5, Baso % (Auto) 0.2, Gran # 2.35, Lymph # (Auto) 1.9, [place] # (Auto) 0.2, Eos # (Auto) 0.1, Baso # (Auto) 0.01 Vital Signs Temp Pulse Resp BP Pulse Ox 03/15/18 09:16 97 H 120/86 03/15/18 07:24 97.4 F L 97 H 20 120/86 03/14/18 15:18 101 H 153/93 H 03/14/18 14:52 66 101/53 L 03/14/18 07:00 97.7 F 66 19 101/53 L 03/14/18 04:40 19 03/13/18 19:31 98.2 F 88 16 128/72 100 03/13/18 17:30 90 18 120/80 99 03/13/18 15:55 97.7 F 104 H 18 116/74 96 DSM 5 Symptoms Update: shortly pt is 62yo female with h/o bipolar disorder, at least one previous psych admission to this facility in 2014, pt is following up in the community by , pt reported being compliant with meds and f/u appt, multiple medical issues, was sent to the psych unit by outpatient psychiatrist for evaluation of worsening of depression/ocd/ pt tried to jump off the moving vehicle over the weekend. pt requires further evaluation and stabilization, meds adjustment. pt was seen today at the dining area, patient reported that she feels "much better", patient reported that she sleeps fine has good appetite, patient reported that she likes Prozac, denied any side effects this moment, patient reported that she has future oriented plans, patient wants to be discharged tomorrow. patient was seen by infectious disease, as well as surgical team, as well as primary care physician, please see notes for more detailed information. presented to have acceptable personal hygiene, was calm/cooperative/ tearful when was asked about her depressive symptoms. pt has good ADLs. So far patient tolerates adjustment of the medications well, prozac increased. aims 0, no EPS. impression: As per history bipolar disorder Medication Change: Yes (prozac) Medical Record Reviewed: Yes Consults ordered or reviewed: medical consult appreciated please see notes for more detailed information ID/surgical consults were called, see notes for more detailed information Mental Status Examination - Cognitive Function Orientation: Person, Place, Situation, Time Memory: Intact Attention: Poor (improvement) Concentration: Poor (improvement) Association: WNL Fund of Knowledge: WNL - Mood Mood: Depressed ("I feel better"), Anxious ("I am not that anxious") - Affect Affect: Constricted (but more reactive and mood congruent) - Speech Speech: Appropriate - Formal Thought Process Formal Thought Process: No Impairment - Suicidal Ideation Suicidal Ideation: No - Homicidal Ideation Homicidal Ideation: No Goal/Treatment Plan - Goal/Treatment Plan Need for Continued Stay: Remain at risks for inpatient hospitalization, Severe depression anxiety, Discharge may exacerbated symptoms, Severe functional impairment Progress Toward Problem(s) and Goals/Treatment Plan: Milieu/structure/supportive therapy Medical consult was called cardiology consult initiated med list from patient's pharmacy was filed into the chart prozac 20 mg started for depression and anxiety risperdal 1mg po bid formal stabilization Trileptal 153 times a day for mood stabilization SW consultation for discharge plan and social issues discussed with Family involvement Follow up on labs Will monitor closely Pt was educated about risk/benefits and alternatives of medications, coping strategies (safety plan, suicide prevention), relapse prevention, importance of follow up with psychiatrist and therapist, stay away from drugs/alcohol/smoking Estimated Date of D/C: 03/18/18
--- NOTE | 2018-03-17 14:13 | PN ---
DATE: SUBJECTIVE: The patient denies any chest pain, palpitation or shortness of breath. PHYSICAL EXAMINATION: GENERAL: The patient was sitting with her group, comfortable and in good mood. VITAL SIGNS: Blood pressure 134/83, heart rate 100, temperature 98.8, respirations 20. LABORATORY DATA: Today's hemoglobin and hematocrit 12.7 and 38.7, white count 12.2, platelet count 219,000. Today's is entirely within normal limits. Liver enzymes are within normal limits. TSH level is within normal limits at 0.76. Ventilation perfusion scan official report, low probability for pulmonary embolus. ASSESSMENT: 1. Chest pain, myocardial infarction is ruled out. The patient has recent normal Lexiscan. 2. Right cellulitis related to recent tongue biting. 3. Hypertension. 4. Depression. RECOMMENDATIONS: Continue current oral Augmentin, Cozaar, Desyrel, Geodon, hydrochlorothiazide 12.5 mg daily, Synthroid at 88 mcg daily, Trileptal 250 mg once a day. Junaid Eugene MD
--- NOTE | 2018-03-17 14:47 | US ---
Date of service: 03/17/2018 PROCEDURE: LIMITED RIGHT CALF SOFT TISSUE ULTRASOUND HISTORY: RLE, r/o abscess COMPARISON: None available. TECHNIQUE: Using a linear high-frequency transducer, ultrasonography of area of trauma to the right calf was interrogated using sagittal as well as transverse projections. FINDINGS: Increased echogenicity is appreciate the subcutaneous fat at the reported site of an apparent dog bite. There are a few small foci of the sub cm size echolucencies suggestive of tiny potential fluid collections or even microabscesses. Hyperemia is not apparent however and further clinical correlation is recommended as this may not be infected necessarily and simply be reactive. The affected area measures at least 5.5 x 2.3 cm. IMPRESSION: Predominantly reactive change/phlegmon is appreciated at the affected subcutaneous soft tissue at the right calf though a few tiny microabscesses may be present here. Involvement appears to be contained to the subcutaneous space with the gastrocnemius muscle displaced. Further clinical correlation is advised. Consider follow-up sonography following therapy.
--- NOTE | 2018-03-17 15:47 | PN ---
DATE: 03/17/2018 SUBJECTIVE: When I saw her, sitting out of bed, on chair in the psychiatric unit. She was seen by Infectious Disease and also by Surgery to look at the dog bite of the calf and no surgery is needed. She will continue with the Augmentin and the Bactroban cream. She is also on Cozaar, Desyrel, Geodon, Maalox, Microzide, milk of magnesia, Percocet, Protonix, Prozac, Risperdal, Synthroid, Trileptal, and Tylenol. PHYSICAL EXAMINATION: VITAL SIGNS: She has a 98.8 temperature, 100 pulse, 134/83 blood pressure, 20 respiratory rate. HEENT: Head is atraumatic, normocephalic. HEART: Regular rate. LUNGS: Clear to auscultation. ABDOMEN: Soft, obese, nontender. EXTREMITIES: No edema, and she does have healing dog bite carter on the left calf, which did not look infected to me. Surgery is not going to do any procedure on it. LABORATORY DATA: She has a 4.2 white count, 12.7 hemoglobin, 30.7 hematocrit with 219 platelets. Clinically, she is very stable. She has 140 sodium, potassium 3.9, BUN 15, creatinine 0.9, GFR 60, sugar 97, calcium 9.4, total bili is 0.2. AST is 35, ALT is 47, alk phos 72, total protein is 7.6. Her TSH is 0.76. I did back off on his Synthroid the other day and that came out much better, so I adjusted the Synthroid. She is being seen by Infectious Disease, Psychiatry and Surgery, so I will keep an eye on the calf, adjust the medications for her thyroid medications, she did better. Tylor Naylor DO
--- NOTE | 2018-03-17 16:02 | PN ---
DATE: 03/17/2018 PHYSICAL EXAMINATION: GENERAL: On exam, the patient is in bed, no acute distress. VITAL SIGNS: Temperature of 98, blood pressure is 130/80, respiratory rate of 16. HEENT: Examination of HEENT is unremarkable. NECK: Supple. LUNGS: Have decreased breath sounds. HEART: Normal S1, S2. ABDOMEN: Soft. LABORATORY DATA: Laboratory examination reveals the white count is 4.2 and the hemoglobin of 12. Chemistries are noted. Serology is noted. HIV is negative. RPR is negative. Dr. Mccall's consultation is reviewed. ASSESSMENT AND PLAN: A 62-year-old female with obesity, body mass index of 39, hypertension, high cholesterol, depression, anxiety with right leg dog bite over 3 weeks ago. Today, she says her leg is much improved and will continue the p.o. Augmentin. Surgical evaluation is noted. Low suspicion for abscess is noted. An ultrasound will be ordered. We will follow with you. Leonid Smith MD
[2018-03-18] MEDS: Levothyroxine 88 MCG TAB PO SCH (06:22)
[2018-03-18 07:11] VITALS: BP 122/76; PULSE 101; TEMP 98.4
[2018-03-18] MEDS: Amoxicillin-Clav 500-125 mg Tab PO SCH (08:28)
[2018-03-18] MEDS: Pantoprazole 40 mg EC Tab PO SCH (08:29)
[2018-03-18] MEDS: Mupirocin 2% Ointment 15 GM TUBE TOP SCH (08:30)
--- NOTE | 2018-03-18 09:38 | CP.PCM.PN ---
Subjective - Date & Time of Evaluation Date of Evaluation: 03/18/18 Time of Evaluation: 09:34 - Subjective Subjective: Surgery: Dr. Mccall Discussed further plan of care with attending Dr. Naylor. Soft tissue ultrasound on 03/17 shows possible areas of "microabscess" but no definitely fluid collection and clinically patient has shown improvement in the cellulitis. Recommend continuing Augmentin and warm compresses to the calf as outpatient. If induration worsens, fever, severe pain, or foul drainage occurs, patient should return to nearest ER for further evaluation. Patient needs strict f/u to monitor progression of the wound with primary doctor. Patient can f/u with Dr. Mccall in office prn, call office for appointment. [facility] PGY4 Objective - Vital Signs/Intake and Output Vital Signs (last 24 hours): Temp Pulse Resp BP Pulse Ox 98.4 F 101 H 20 122/76 100 03/18/18 07:10 03/18/18 08:29 03/18/18 07:10 03/18/18 08:29 03/13/18 19:31 - Medications Medications: Current Medications Acetaminophen (Tylenol 325mg Tab) 325 mg PO Q6H PRN PRN Reason: Pain, Mild (1-3) Last Admin: 03/16/18 15:02 Dose: 325 mg Al Hydrox/Mg Hydrox/Simethicone (Maalox Plus 30 Ml) 30 ml PO DAILY PRN PRN Reason: Dyspepsia Last Admin: 03/14/18 23:49 Dose: 30 ml Amoxicillin/Clavulanate Potassium (Augmentin 500 Mg-125 Mg Tab) 1 tab PO BID [facility]; Protocol Last Admin: 03/18/18 08:28 Dose: 1 tab Fluoxetine HCl (Prozac) 20 mg PO DAILY [facility] Last Admin: 03/18/18 08:30 Dose: 20 mg Home Med (Home Med) 0 unit PO Q8 PRN PRN Reason: Anxiety Last Admin: 03/15/18 22:10 Dose: 1 unit Hydrochlorothiazide (Microzide) 12.5 mg PO DAILY [facility] Last Admin: 03/18/18 08:28 Dose: 12.5 mg Levothyroxine Sodium (Synthroid) 88 mcg PO 0600 [facility] Last Admin: 03/18/18 06:22 Dose: 88 mcg Losartan Potassium (Cozaar) 50 mg PO DAILY [facility] Last Admin: 03/18/18 08:29 Dose: 50 mg Magnesium Hydroxide (Milk Of Magnesia) 30 ml PO DAILY PRN PRN Reason: Constipation Mupirocin (Bactroban Ointment) 0 gm TOP BID [facility] Last Admin: 03/18/18 08:30 Dose: 1 applic Oxcarbazepine (Trileptal) 150 mg PO HS [facility]; Protocol Last Admin: 03/17/18 23:01 Dose: 150 mg Oxcarbazepine (Trileptal) 150 mg PO BID [facility]; Protocol Last Admin: 03/18/18 08:30 Dose: 150 mg Oxycodone/Acetaminophen (Percocet 2.5/325 Mg Tab) 1 tab PO TID PRN PRN Reason: severe pain >8/10 Last Admin: 03/17/18 23:00 Dose: 1 tab Pantoprazole Sodium (Protonix Ec Tab) 40 mg PO 0600 [facility] Last Admin: 03/18/18 08:29 Dose: 40 mg Risperidone (Risperdal Tab) 1 mg PO AMHS [facility]; Protocol Last Admin: 03/17/18 23:00 Dose: 1 mg Trazodone HCl (Desyrel) 100 mg PO HS [facility] Last Admin: 03/17/18 23:01 Dose: 100 mg Trazodone HCl (Desyrel) 100 mg PO HS PRN PRN Reason: as neeeded for insomnia Last Admin: 03/18/18 00:48 Dose: 100 mg Ziprasidone (Geodon Inj) 20 mg IM Q6H PRN; Protocol PRN Reason: Agitation Ziprasidone (Geodon Cap) 20 mg PO QID PRN; Protocol PRN Reason: agitation/psychosis - Labs Labs: 03/17/18 07:30 03/17/18 07:30
--- NOTE | 2018-03-18 12:05 | PCM.PYCHDC ---
Mental Status Examination - Mental Status Examination Orientation: Person, Place, Situation, Time Memory: Intact Mood: Neutral Affect: Broad (and mood congruent) Speech: Appropriate Attention: WNL Concentration: WNL Association: WNL Fund of Knowledge: WNL Formal Thought Process: No Impairment Description of patient's judgement and insight: Pt has improved insight into mental and medical illness, pt was compliant with medications and unit rules and regulations, pt was going to groups, was calm, cooperative, socially appropriate, no behavioral incidents, no agitation, no aggression. Psychotic Thoughts and Behaviors: Pt denied v/a/t hallucinations, denied paranoid ideations, pt does not appear to be psychotic, and thought process is goal directed. Suicidal Ideation: No Current Homicidal Ideation?: No Plan: pt adamantly denied thoughts of harming self or others denied intent or plan. Discharge Summary - Discharge Note Reason for Hospitalization: pt was admitted for evaluation and stabilization of depressive symptoms which seems to be worsening, pt tried to jump off the moving vehicle. possible suicidal ideation. Psychiatric History (includes Medical, Family, Personal Hx): see HPI Laboratory Data: 03/17/18 07:30 03/17/18 07:30 Lab Results 03/17/18 07:30: TSH 3rd Generation 0.76 03/17/18 07:30: Sodium 140, Potassium 3.9, Chloride 103, Carbon Dioxide 28, Anion Gap 13, BUN 15, Creatinine 0.9, Est GFR ( Amer) > 60, Est GFR (Non- Af Amer) > 60, Random Glucose 97, Calcium 9.4, Total Bilirubin 0.2, AST 35, ALT 47, Alkaline Phosphatase 72, Total Protein 7.6, Albumin 4.5, Globulin 3.1, Albumin/Globulin Ratio 1.4 03/17/18 07:30: WBC 4.2 L, RBC 4.63, Hgb 12.7, Hct 38.7, MCV 83.6, MCH 27.4, MCHC 32.8, RDW 14.0, Plt Count 219, MPV 9.5 03/16/18 13:10: HIV 1&2 Ag/Ab, 4th Gen Nonreactive 03/15/18 08:00: TSH 3rd Generation 0.28 L 03/15/18 08:00: Sodium 140, Potassium 3.7, Chloride 106, Carbon Dioxide 23, Anion Gap 14, BUN 14, Creatinine 0.8, Est GFR ( Amer) > 60, Est GFR (Non- Af Amer) > 60, Random Glucose 91, Calcium 9.0, Total Bilirubin 0.3, AST 42 H D, ALT 50, Alkaline Phosphatase 63, Total Protein 7.2, Albumin 4.1, Globulin 3.1, Albumin/Globulin Ratio 1.3 03/15/18 08:00: WBC 3.2 L D, RBC 4.49, Hgb 12.4, Hct 37.5, MCV 83.5, MCH 27.6, MCHC 33.1, RDW 13.9, Plt Count 187, MPV 9.5 03/14/18 14:00: D-Dimer, Quantitative 285 H 03/14/18 07:00: RPR Nonreactive 03/14/18 07:00: Fasting Glucose 93, Triglycerides 121, Cholesterol 157, LDL Cholesterol Direct 65, HDL Cholesterol 77 H 03/14/18 07:00: TSH 3rd Generation 0.45 L 03/13/18 22:15: Hemoglobin A1c 5.6 03/13/18 22:15: Triglycerides 157, Cholesterol 162, LDL Cholesterol Direct 61, HDL Cholesterol 76 H 03/13/18 19:25: Urine Opiates Screen Positive H, Urine Methadone Screen Negative, Ur Barbiturates Screen Negative, Ur Phencyclidine Scrn Negative, Ur Amphetamines Screen Negative, U Benzodiazepines Scrn Positive H, U Oth Cocaine Metabols Negative, U Cannabinoids Screen Negative 03/13/18 19:25: Urine Color Yellow, Urine Appearance Clear, Urine pH 6.0, Ur Specific Superior 1.020, Urine Protein Negative, Urine Glucose (UA) Negative, Urine Ketones Negative, Urine Blood Negative, Urine Nitrate Negative, Urine Bilirubin Negative, Urine Urobilinogen 0.2, Ur Leukocyte Esterase Trace H, Urine RBC Negative, Urine WBC 1 - 3, Ur Epithelial Cells 1 - 3, Urine Bacteria Few 03/13/18 16:45: Alcohol, Quantitative < 10 03/13/18 16:45: Salicylates < 1 L, Acetaminophen < 10.0 L 03/13/18 16:45: Sodium 140, Potassium 3.7, Chloride 104, Carbon Dioxide 26, Anion Gap 14, BUN 18, Creatinine 1.0, Est GFR ( Amer) > 60, Est GFR (Non- Af Amer) 56, Random Glucose 107, Calcium 9.4, Magnesium 1.9, Total Bilirubin 0.4, AST 58 H, ALT 45, Alkaline Phosphatase 73, Total Protein 7.3, Albumin 4.3, Globulin 2.9, Albumin/Globulin Ratio 1.5 03/13/18 16:45: WBC 4.6 D, RBC 4.72, Hgb 13.2, Hct 39.6, MCV 83.9, MCH 28.0, MCHC 33.3, RDW 13.8, Plt Count 191, MPV 9.3, Gran % 51.5, Lymph % (Auto) 42.2 H, [place] % (Auto) 4.6, Eos % (Auto) 1.5, Baso % (Auto) 0.2, Gran # 2.35, Lymph # (Auto) 1.9, [place] # (Auto) 0.2, Eos # (Auto) 0.1, Baso # (Auto) 0.01 Vital Signs Temp Pulse Resp BP Pulse Ox 03/18/18 08:29 101 H 122/76 03/18/18 07:10 98.4 F 101 H 20 122/76 03/17/18 15:00 89 135/79 03/17/18 09:42 100 H 134/83 03/17/18 07:24 98.8 F 100 H 20 134/83 03/16/18 16:00 117 H 128/76 03/16/18 08:04 102 H 135/85 03/16/18 07:26 98.5 F 102 H 20 135/85 03/15/18 09:16 97 H 120/86 03/15/18 07:24 97.4 F L 97 H 20 120/86 03/14/18 15:18 101 H 153/93 H 03/14/18 14:52 66 101/53 L 03/14/18 07:00 97.7 F 66 19 101/53 L 03/14/18 04:40 19 03/13/18 19:31 98.2 F 88 16 128/72 100 03/13/18 17:30 90 18 120/80 99 03/13/18 15:55 97.7 F 104 H 18 116/74 96 USG of LE showed microabsceses see report Consultations:: List each consultation separately and include: 1. Reason for r equest. 2. Findings. 3. Follow-up Consultations: medical consult appreciated please see notes for more detailed information ID/surgical consults were called, see notes for more detailed information Surgery: Dr. Mccall, consult appreciated Impression: "Soft tissue ultrasound on 03/17 shows possible areas of "microabscess" but no definitely fluid collection and clinically patient has shown improvement in the cellulitis." Recommend: "continuing Augmentin and warm compresses to the calf as outpatient. If induration worsens, fever, severe pain, or foul drainage occurs, patient should return to nearest ER for further evaluation. Patient needs strict f/u to monitor progression of the wound with primary doctor. Patient can f/u with Dr. Mccall in office prn, call office for appointment." discussed with 03/18/18 pt was cleared for d/c Summary of Hospital Course include:: 1. Description of specific treatment plan utilized for patients during their course of treatmen. 2. Summarize the time- course for resolution of acute symptoms and/or regressed behaviors. 3. Describe issues identified and worked on during hospitalization. 4. Describe medication utilized. 5. Describe medical problems identified and treated. 6. Reassessment of suicide risk Summary of Hospital Course: shortly pt is 62yo female with h/o bipolar disorder, at least one previous psych admission to this facility in 2014, pt is following up in the community by , pt reported being compliant with meds and f/u appt, multiple medical issues, was sent to the psych unit by outpatient psychiatrist for evaluation of worsening of depression/ocd/ pt tried to jump off the moving vehicle over the weekend. pt required further evaluation and stabilization, meds adjustment. At the time of admission patient presented to be depressed, anxious, unable to function. Please see initial evaluation for more detailed information. 03/13/18 16:45 03/13/18 16:45 Lab Results 03/14/18 14:00: D-Dimer, Quantitative 285 H 03/14/18 07:00: Fasting Glucose 93, Triglycerides 121, Cholesterol 157, LDL Cholesterol Direct 65, HDL Cholesterol 77 H 03/14/18 07:00: TSH 3rd Generation 0.45 L 03/13/18 22:15: Hemoglobin A1c 5.6 03/13/18 22:15: Triglycerides 157, Cholesterol 162, LDL Cholesterol Direct 61, HDL Cholesterol 76 H 03/13/18 19:25: Urine Opiates Screen Positive H, Urine Methadone Screen Negative, Ur Barbiturates Screen Negative, Ur Phencyclidine Scrn Negative, Ur Amphetamines Screen Negative, U Benzodiazepines Scrn Positive H, U Oth Cocaine Metabols Negative, U Cannabinoids Screen Negative 03/13/18 19:25: Urine Color Yellow, Urine Appearance Clear, Urine pH 6.0, Ur Specific [place] 1.020, Urine Protein Negative, Urine Glucose (UA) Negative, Urine Ketones Negative, Urine Blood Negative, Urine Nitrate Negative, Urine Bilirubin Negative, Urine Urobilinogen 0.2, Ur Leukocyte Esterase Trace H, Urine RBC Negative, Urine WBC 1 - 3, Ur Epithelial Cells 1 - 3, Urine Bacteria Few 03/13/18 16:45: Alcohol, Quantitative < 10 03/13/18 16:45: Salicylates < 1 L, Acetaminophen < 10.0 L 03/13/18 16:45: Sodium 140, Potassium 3.7, Chloride 104, Carbon Dioxide 26, Anion Gap 14, BUN 18, Creatinine 1.0, Est GFR ( Amer) > 60, Est GFR (Non- Af Amer) 56, Random Glucose 107, Calcium 9.4, Magnesium 1.9, Total Bilirubin 0.4, AST 58 H, ALT 45, Alkaline Phosphatase 73, Total Protein 7.3, Albumin 4.3, Globulin 2.9, Albumin/Globulin Ratio 1.5 03/13/18 16:45: WBC 4.6 D, RBC 4.72, Hgb 13.2, Hct 39.6, MCV 83.9, MCH 28.0, MCHC 33.3, RDW 13.8, Plt Count 191, MPV 9.3, Gran % 51.5, Lymph % (Auto) 42.2 H, [place] % (Auto) 4.6, Eos % (Auto) 1.5, Baso % (Auto) 0.2, Gran # 2.35, Lymph # (Auto) 1.9, [place] # (Auto) 0.2, Eos # (Auto) 0.1, Baso # (Auto) 0.01 Vital Signs Temp Pulse Resp BP Pulse Ox 03/14/18 07:00 97.7 F 66 19 101/53 L 03/14/18 04:40 19 03/13/18 19:31 98.2 F 88 16 128/72 100 03/13/18 17:30 90 18 120/80 99 03/13/18 15:55 97.7 F 104 H 18 116/74 96 over the course of this hospitalization pt was stabilized on the following meds celexa was d/c prozac was started and slowly titrated to 20mg po dialy for depression and anxiety Xanax patient did not ask for it and it was discontinued, no withdrawal symptoms Risperdal was continued 1 mg twice a day, but that the day of discharge medical record indicated that patient was on 2 mg twice a day and it was resumed for m ood stabilization Trileptal 150 mg 3 times a day for mood stabilization Trazodone 100-200 mg at the nighttime for depression and insomnia Discussed with outpatient psychiatrist Dr. Richards on03/14/2018 Patient tolerated medications well, no side effects observed or reported, aims 0, no EPS. Patient was seen by medical team, infectious diseases team, surgical team please see notes for more detailed information. as per medical team patient needs to continue antibiotics for another 5 days for infection of her lower extremity status post dog bite. Over the course of this hospitalization pt was attending groups, pt also had medication management, had therapeutic milieu. Overall pt improved significantly, pt's affect became brighter, pt was less depressed, has realistic future oriented plans, pt also does not appear to be psychotic, or anxious, pt was socially appropriate, no behavioral issues, pts insight improved as well and soon pt deemed to be ready for discharge. At the time of the discharge pt denied been depressed, denied thoughts of harming self or others, denied psychotic symptoms, and pt does not appeared to be psychotic, denied been anxious, pt is not in imminent danger to self or others, pt was referred back to her outpatient psychiatrist , informa tion about follow up appointment, time and address provided to the pt (see SW note), it is patient responsibility to follow up with outpatient clinic, PMD/surgical/infectious disease specialist all provided contact info and pt is aware of a need to be f/u aw outpatient. In case pt will need to obtain results of studies pending at discharge pt was provided with contact information of Psychiatric Inpatient unit [phone] as well as Medical Record Department [phone]. patient does not smoke,does not use drugs, denied drinking alcohol pt was provided with prescriptions for all of medications (please see medication reconciliation form) Pt was educated about safety plan in case of worsening of symptoms or in case of suicidal or homicidal ideation call 911 or go to the nearest ER, also was educated to take meds as prescribed and stay away from drugs, pt verbalized understanding. - Diagnosis (1) Bipolar disorder Current Visit: Yes Status: Chronic Priority: High (2) History of OCD (obsessive compulsive disorder) Current Visit: Yes Status: Chronic Priority: Medium - Final Diagnosis (DSM 5) Condition upon Discharge: GOOD Disposition: HOME/ ROUTINE Follow-up Treatment Plan: At the time of the discharge pt denied been depressed, denied thoughts of harming self or others, denied psychotic symptoms, and pt does not appeared to be psychotic, denied been anxious, pt is not in imminent danger to self or others, pt was referred back to her outpatient psychiatrist , info rmation about follow up appointment, time and address provided to the pt (see SW note), it is patient responsibility to follow up with outpatient clinic, PMD/surgical/infectious disease specialist all provided contact info and pt is aware of a need to be f/u aw outpatient. In case pt will need to obtain results of studies pending at discharge pt was provided with contact information of Psychiatric Inpatient unit [phone] as well as Medical Record Department [phone]. patient does not smoke,does not use drugs, denied drinking alcohol pt was provided with prescriptions for all of medications (please see medication reconciliation form) Pt was educated about safety plan in case of worsening of symptoms or in case of suicidal or homicidal ideation call 911 or go to the nearest ER, also was educated to take meds as prescribed and stay away from drugs, pt verbalized understanding. Prescriptions/Medication Reconciliation: Amoxicillin/Clavulanate [Augmentin 500 MG-125 MG Tab] 1 tab PO BID #10 tab FLUoxetine [Prozac] 20 mg PO DAILY #14 cap hydroCHLOROthiazide [Microzide] 12.5 mg PO DAILY #7 cap Levothyroxine [Synthroid] 88 mcg PO 0600 #7 tab Losartan [Cozaar] 50 mg PO DAILY #7 tab Mupirocin 2% Ointment [Bactroban Ointment] 1 unit TOP BID #1 tube OXcarbazepine [Trileptal] 150 mg PO TID #45 tab Pantoprazole [Protonix EC Tab] 40 mg PO 0600 #7 ect Risperidone [Risperdal] 2 mg PO AMHS #30 tablet traZODone [Desyrel] 100 mg PO HS PRN #30 tab PRN Reason: depression - Smoking Cessation Smoking Cessation Medication prescribed: No Reason for not providing: patient denied smoking - Antipsychotic Medications Pt discharged on 2 or more routine antipsychotic medications: No
--- NOTE | 2018-03-18 12:35 | PN ---
DATE: SUBJECTIVE: I saw her in the psychiatric unit. There is a question about her left calf where she had a dog bite. She was seen by Surgery and she also had an ultrasound of the calf, which showed some microabscesses possibly. I discussed with the operating room surgical technician, we discussed with Dr. Mccall and the plan is going to be she could be discharged whenever Psychiatry wants to discharge her. She will continue with the Augmentin 500 mg twice a day and the Bactroban cream twice a day, and if it gets worse, she go to the emergency room and I will reevaluate it. MEDICATION: She is currently on Augmentin, Bactroban cream, Cozaar for tight blood pressure, Desyrel, Geodon, Microzide, milk of magnesia, Percocet, Protonix, Prozac, Risperdal, Synthroid, Trileptal, Tylenol. PHYSICAL EXAMINATION: VITAL SIGNS: Temperature 98.4, 101 pulse, 122/76 blood pressure, 20 respiratory rate. HEENT: Head is atraumatic, normocephalic. HEART: Regular rate. LUNGS: Clear to auscultation. ABDOMEN: Soft, nontender. Positive bowel sounds. EXTREMITIES: No edema. Left calf looks like it is a healing dog bite, does not look terrible right now. LABORATORY DATA: She has a 4.2 white count, 12.7 hemoglobin, 38.2 hematocrit with 219 platelets. Her white count has been basically flat. She has a 140 sodium, potassium 3.9, BUN is 15, creatinine 0.9, GFR is greater than 60, sugar is 97, calcium is 9.4, total bili is 0.2, AST is 35, ALT is 47, alk phos 72, total protein is 7.6 and 0.76 for TSH since they adjusted the thyroid medication. ASSESSMENT AND PLAN: As per Psychiatry, we will continue with aggressive treatment and care. Besides her depression, she has hypertension and dog bite over the left calf. She is to follow up on the outpatient. Tylor Naylor DO [facility]PITALAnnie
--- NOTE | 2018-03-18 14:36 | PN ---
DATE: 03/18/2018 SUBJECTIVE: The patient is in bed, in no acute distress, nontoxic. PHYSICAL EXAMINATION: VITAL SIGNS: On exam, temperature is 98, blood pressure is 120/70, respiratory rate of 18. HEENT: Examination of HEENT is unremarkable. NECK: Supple. LUNGS: Have decreased breath sounds. HEART: Normal S1, S2. ABDOMEN: Soft. LABORATORY DATA: Laboratory examination reveals a white count of 4.2, hemoglobin is noted. Chemistries are reviewed with normal BUN and creatinine. Urinalysis is noted. Toxicology reveals positive for benzodiazepine and urine opiates are positive. HIV is negative and RPR is nonreactive. The patient had an ultrasound of soft tissue this morning, she tolerated the procedure well. Predominantly, reactive change of phlegmon is appreciated. ASSESSMENT AND PLAN: A 62-year-old female, who was seen earlier this morning in psychiatric [facility]. She is doing much better. She states her leg is much improved. She has a history of obesity with BMI of 39, almost morbid obesity with hypertension, high cholesterol, depression, anxiety, right leg infection, status post dog bite. On p.o. Augmentin, would complete 7-10 days of p.o. Augmentin. Follow it clinically. Leonid Smith MD
== END 2018-03-18 14:09 | disposition home or self-care (01) | DRG 885 ==
LOC: ED 15:47 → ERH 19:16 → PSYC 20:40
PROVIDERS: ADMIT Psychiatry & Neurology Psychiatry; ATTEND Psychiatry & Neurology Psychiatry
DX: F31.9 Bipolar disorder, unspecified (principal); L03.115 Cellulitis of right lower limb; F42.9 Obsessive-compulsive disorder, unspecified; F43.22 Adjustment disorder with anxiety; E03.9 Hypothyroidism, unspecified; E78.00 Pure hypercholesterolemia, unspecified; I10 Essential (primary) hypertension; E66.9 Obesity, unspecified; S81.851A Open bite, right lower leg, initial encounter; S81.852A Open bite, left lower leg, initial encounter; R07.89 Other chest pain; I25.10 Atherosclerotic heart disease of native coronary artery without angina pectoris; I45.81 Long QT syndrome; W54.0XXA Bitten by dog, initial encounter; Z68.39 Body mass index [BMI] 39.0-39.9, adult; Z98.84 Bariatric surgery status

== ENCOUNTER 2018-10-17 11:55 | Emergency (ER) | payer MEDICARE, BC, OTHER ==
[2018-10-17 12:16] VITALS: BMI 40.1
[2018-10-17 12:18] VITALS: TEMP 98
--- NOTE | 2018-10-17 13:01 | ED PDOC ---
Arrival/HPI - General Chief Complaint: High Blood Pressure Time Seen by Provider: 10/17/18 12:22 Historian: Patient - History of Present Illness Narrative History of Present Illness (Text): 10/17/18 12:53 Patient is a 62 year old female whose past medical history includes hypertension, who presents to the ED complaining of dizziness which occurred earlier today. Patient reports that she felt fine yesterday, but after waking up today she felt dizzy upon getting out of bed, which she describes as a spinning sensation. She admits to experiencing some nausea, and slight generalized headache. Patient has a history of hypertension, but doesn't take antihypertensive medications anymore. She thought her symptoms was related to her blood pressure, and so subsequently measured and found her blood pressure to be 155/101. Patient quit smoking 14 years ago. Patient denies any fevers, numbness, tingling, chest pain, palpitations, shortness of breath, vomiting or any other complaint. Time/Duration: 1-3 hours Symptom Onset: Sudden Symptom Course: Unchanged Activities at Onset: Light Context: Standing, Home Associated Symptoms (Text): 10/17/18 13:44 Patient woke up this morning with vertigo and a slight headache. No numbness tingling or paresthesias. No weakness. Mild nausea but no vomiting. No chest pain palpitations or dyspnea. She believes that this is related to her blood pressure. Past Medical History - Provider Review Nursing Documentation Reviewed: Yes - Infectious Disease Hx of Infectious Diseases: None - Cardiac Hx Cardiac Disorders: Yes Hx Hypertension: Yes - Pulmonary Hx Respiratory Disorders: No Hx Tuberculosis: No - Neurological Hx Neurological Disorder: No Hx Seizures: No - HEENT Hx HEENT Disorder: No - Renal Hx Renal Disorder: No - Endocrine/Metabolic Hx Endocrine Disorders: No - Hematological/Oncological Hx Blood Disorders: No - Integumentary Hx Dermatological Disorder: No - Musculoskeletal/Rheumatological Hx Musculoskeletal Disorders: Yes Hx Herniated Disk: Yes - Gastrointestinal Hx Gastrointestinal Disorders: No - Genitourinary/Gynecological Hx Genitourinary Disorders: No Hx Sexually Transmitted Diseases: No - Psychiatric Hx Psychophysiologic Disorder: Yes Hx Anxiety: Yes Hx Bipolar Disorder: Yes Hx Depression: Yes Hx Substance Use: No - Surgical History Other/Comment: Gastric lap band 2016. Cardiac Catherization 2016 [facility] - Anesthesia Hx Anesthesia: Yes Hx Anesthesia Reactions: No Hx Malignant Hyperthermia: No - Suicidal Assessment Feels Threatened In Home Enviroment: No Family/Social History - Physician Review Nursing Documentation Reviewed: Yes Family/Social History: No Known Family HX, Unknown Family HX Smoking Status: Former Smoker (Quit smoking 14 years ago) Hx Alcohol Use: No Hx Substance Use: No Allergies/Home Meds Allergies/Adverse Reactions: Allergies adhesive tape Allergy (Verified 10/17/18 12:16) RASH Iodine and Iodide Containing Produc Allergy (Verified 10/17/18 12:16) ANAPHYLAXIS levothyroxine sodium [From Synthroid] Allergy (Verified 10/17/18 12:16) REDNESS povidone-iodine [From Betadine] Allergy (Verified 10/17/18 12:16) RASH soap [From Betadine] Allergy (Verified 10/17/18 12:16) RASH CRABS Allergy (Severe, Uncoded 10/17/18 12:16) ANAPHYLAXIS fresh fruit Allergy (Intermediate, Uncoded 10/17/18 12:16) ITCHING Home Medications: Home Meds Medication Instructions Recorded Confirmed Conjugated Estrogens [Premarin] 0.625 mg PO DAILY 11/09/15 03/13/18 Liothyronine [Cytomel] 25 mcg PO DAILY 11/09/15 03/13/18 Review of Systems - Physician Review All systems were reviewed & negative as marked: Yes - Review of Systems Constitutional: absent: Fatigue, Fevers Respiratory: absent: SOB, Cough, Wheezing Cardiovascular: absent: Chest Pain, Palpitations, Syncope Gastrointestinal: Nausea. absent: Abdominal Pain, Diarrhea, Vomiting Neurological: Headache, Dizziness. absent: Focal Weakness, Gait Changes, Speech Changes, Facial Droop, Disequilibrium, Seizure Physical Exam Vital Signs Reviewed: Yes Vital Signs Temp Pulse Resp BP Pulse Ox 10/17/18 12:16 98.0 F 89 18 146/83 95 Temperature: Afebrile Blood Pressure: Hypertensive Pulse: Regular Respiratory Rate: Normal Appearance: Positive for: Well-Appearing Mental Status: Positive for: Alert and Oriented X 3 - Systems Exam Head: Present: Atraumatic, Normocephalic Pupils: Present: PERRL Extroacular Muscles: Present: EOMI Conjunctiva: Present: Normal Ears: Present: NORMAL TM, Normal Canal. No: Erythema, TM Bulging Mouth: Present: Moist Mucous Membranes Pharnyx: No: ERYTHEMA, EXUDATE, TONSILS ENLARGED Neck: Present: Normal Range of Motion Respiratory/Chest: Present: Clear to Auscultation, Good Air Exchange. No: Respiratory Distress, Accessory Muscle Use Cardiovascular: Present: Regular Rate and Rhythm, Normal S1, S2. No: Murmurs Abdomen: Present: Other (Obese). No: Tenderness, Distention, Peritoneal Signs, Rebound, Guarding Back: Present: Normal Inspection Upper Extremity: Present: Normal Inspection. No: Cyanosis, Edema Lower Extremity: Present: Normal Inspection. No: Edema Neurological: Present: GCS=15, CN II-XII Intact, Speech Normal, Motor Func Grossly Intact, Normal Sensory Function, Normal Cerebellar Funct, Gait Normal Skin: Present: Warm, Dry, Normal Color. No: Rashes Psychiatric: Present: Alert, Oriented x 3, Normal Insight, Normal Concentration Medical Decision Making ED Course and Treatment: 10/17/18 13:05 Impression: 62 year old female who is complaining of dizziness that occurred earlier today when getting out of bed. Plan: -- Head CT without contrast -- EKG -- Blood work -- Labs -- Cardiac enzyme -- Reassess and disposition Prior Visits: Notes and results from previous visits were reviewed. Progress Notes: 10/17/18 14:20 EKG shows normal sinus rhythm rate approximately [address] or T wave changes. 10/17/18 15:21 Symptoms improved. Patient will be discharged home accompanied by her daughter to follow-up with PMD. Prescription for Antivert. Follow-up in ER as needed. Hypertension check with PMD. - Lab Interpretations I have reviewed the lab results: Yes - RAD Interpretation Narrative RAD Interpretations (Text): 10/17/18 15:[address] without contrast: Dictator : Jennifer Hutchison MD FINDINGS: HEMORRHAGE:No intracranial hemorrhage. BRAIN: There is metallic density in the left sella turcica with extensive streak artifacts in the middle and posterior cranial fossae. There is no mass, mass effect or abnormal extra-axial fluid collection. There is no territorial infarction. The midline sagittal structures are normal. VENTRICLES: The ventricles are normal in size, shape and configuration. CALVARIUM: There is no calvarial fracture or extracranial soft tissue swelling. PARANASAL SINUSES: Predominantly clear. MASTOID AIR CELLS: Predominantly clear. OTHER FINDINGS: None. IMPRESSION: No acute intracranial abnormality. Radiology Orders: CT scan of the head is read by the radiologist is unremarkable. Bulk Sugar Handler: Radiologist - EKG Interpretation Interpreted by ED Physician: Yes Type: 12 lead EKG - Scribe Statement The provider has reviewed the documentation as recorded by the Scribe Louis Barney Provider Scribe Attestation: All medical record entries made by the Scribe were at my direction and personally dictated by me. I have reviewed the chart and agree that the record accurately reflects my personal performance of the history, physical exam, medical decision making, and the department course for this patient. I have also personally directed, reviewed, and agree with the discharge instructions and disposition. Disposition/Present on Arrival - Present on Arrival Any Indicators Present on Arrival: No History of DVT/PE: No History of Uncontrolled Diabetes: No Urinary Catheter: No History of Decub. Ulcer: Yes History Surgical Site Infection Following: None - Disposition Have Diagnosis and Disposition been Completed?: Yes Diagnosis: Hypertension, Vertigo Disposition: HOME/ ROUTINE Disposition Time: 15:22 Patient Plan: Discharge Condition: IMPROVED Discharge Instructions (ExitCare): Vertigo (a Type of Dizziness), High Blood Pressure in Adults Additional Instructions: Hypertension check with PMD. Follow-up in ER as needed. Prescriptions: Meclizine [Meclizine*] 25 mg PO Q6 #20 tab Ondansetron ODT [Zofran ODT] 4 mg PO Q6 #20 odt Referrals: PCP,NO [Primary Care Provider] - Follow up with primary Forms: [employer] (Urdu)
[2018-10-17] MEDS ORDERED: Sodium Chloride 0.9% 500 ML IV ONE (13:06)
[2018-10-17 13:43] LABS: BASO # 0.01 K/mm3 (0.0-2.0); BASO % 0.3 % (0.0-3.0); EOS # 0.1 (0.0-0.7); EOS % 2.7 % (1.5-5.0); LYMPH # 1.5 (1.2-3.4); LYMPH % 45.5 % (22.0-35.0); MEAN CELL VOLUME 80.8 fl (80.0-105.0); MEAN CORPUSCULAR HEMOGLOBIN 26.5 pg (25.0-35.0); MEAN CORPUSCULAR HGB CONC 32.8 g/dl (31.0-37.0); MEAN PLATELET VOLUME 9.8 fl (7.0-11.0); MONO # 0.2 (0.1-0.6); MONO % 4.8 % (1.0-6.0); RBC 4.9 10^6/uL (3.5-6.1); RED CELL DISTRIBUTION WIDTH 14.1 % (11.5-14.5); WHITE BLOOD COUNT 3.3 10^3/uL (4.5-11.0)
[2018-10-17 13:50] VITALS: BP 123/80; RESP 16; O2SAT 98
[2018-10-17 13:52] LABS: ALB/GLOB RATIO 1.4 (1.1-1.8); ALBUMIN 4.2 g/dL (3.0-4.8); ALT/SGPT 40 U/L (7-56); AST/SGOT 30 U/L (14-36); BLOOD UREA NITROGEN 13 mg/dL (7-21); CALCIUM 9.6 mg/dL (8.4-10.5); GFR NON-AFRICAN AMERICAN > 60
[2018-10-17 14:03] LABS: TROPONIN I < 0.01 ng/mL
--- NOTE | 2018-10-17 15:16 | CT ---
Date of service: 10/17/2018 PROCEDURE: CT HEAD WITHOUT CONTRAST. HISTORY: dizzy/vertigo COMPARISON: None available. TECHNIQUE: Axial computed tomography images were obtained through the head/brain without intravenous contrast. Radiation dose: Total exam DLP = 882.86 mGy-cm. This CT exam was performed using one or more of the following dose reduction techniques: Automated exposure control, adjustment of the mA and/or kV according to patient size, and/or use of iterative reconstruction technique. FINDINGS: HEMORRHAGE: No intracranial hemorrhage. BRAIN: There is metallic density in the left sella turcica with extensive streak artifacts in the middle and posterior cranial fossae. There is no mass, mass effect or abnormal extra-axial fluid collection. There is no territorial infarction. The midline sagittal structures are normal. VENTRICLES: The ventricles are normal in size, shape and configuration. CALVARIUM: There is no calvarial fracture or extracranial soft tissue swelling. PARANASAL SINUSES: Predominantly clear. MASTOID AIR CELLS: Predominantly clear. OTHER FINDINGS: None. IMPRESSION: No acute intracranial abnormality.
[2018-10-17 15:38] VITALS: PULSE 61
--- NOTE | 2018-10-17 17:03 | CARD ---
APPROVED REPORT Date of service: 10/17/2018 EKG Measurement Heart [id number] <Conclusion> Sinus bradycardia Low voltage QRS Borderline ECG
== END 2018-10-17 15:32 | disposition home or self-care (01) ==
LOC: ED 11:55
DX: I10 Essential (primary) hypertension (principal); R42 Dizziness and giddiness; Z87.891 Personal history of nicotine dependence
CPT/HCPCS: 70450; 80053; 82550; 83615; 83735; 84484; 85025; 85730; 93005; 96361; 96374; 99285; J2405; J7040